=== PATIENT | female | born 1960 | race Caucasian/White ===

== ENCOUNTER 2020-11-02 17:19 | Outpatient (REF) | payer MEDICARE, SELFPAY ==
--- NOTE | ~2020-11-02 | XR_ITS ---
EXAMINATION: XR CHEST CLINICAL INFORMATION: Acute pharyngitis COMPARISON: July 05, 2018 TECHNIQUE: 2 views of the chest were obtained. FINDINGS: No significant abnormality is noted involving the heart, lungs, mediastinum, bony thorax or soft tissues. Linear scar seen lingula. XR/XR chest 2V IMPRESSION: No acute disease.
== END 2020-11-02 17:20 | disposition home or self-care (01) ==
LOC: HO.XRAY 17:19
PROVIDERS: PCP Family Medicine; Visit Provider Nurse Practitioner Family
DX: J02.9 Acute pharyngitis, unspecified (principal)
CPT/HCPCS: 71046

== ENCOUNTER 2021-03-24 10:31 | Outpatient (REF) | payer MEDICARE, SELFPAY ==
--- NOTE | ~2021-03-24 | XR_ITS ---
EXAMINATION: XR SINUSES CLINICAL INFORMATION: Pain. COMPARISON: None TECHNIQUE: 3 views of the sinuses were obtained. FINDINGS: Paranasal sinuses appear clear without air-fluid levels. No fractures are identified. No radiodense foreign bodies. XR/XR sinus min 3V IMPRESSION: Unremarkable examination.
== END 2021-03-24 10:32 | disposition home or self-care (01) ==
LOC: HO.XRAY 10:31
PROVIDERS: PCP Registered Nurse; Visit Provider Registered Nurse
DX: T78.49XS Other allergy, sequela (principal)
CPT/HCPCS: 70220

== ENCOUNTER 2021-07-18 08:00 | Outpatient (RCR) | payer MEDICARE, SELFPAY | END 2021-09-15 13:49 | disposition home or self-care (01) | LOC: HO.PT 08:00 | PROVIDERS: PCP Registered Nurse; Visit Provider Registered Nurse | DX: M54.50 Low back pain, unspecified (principal) | CPT/HCPCS: 97110; 97140; 97162; 97530 ==

== ENCOUNTER 2021-12-15 08:00 | Outpatient (RCR) | payer MEDICARE, SELFPAY | END 2022-01-22 09:44 | disposition home or self-care (01) | LOC: HO.PT 08:00 | PROVIDERS: PCP Registered Nurse; Visit Provider Registered Nurse | DX: M54.2 Cervicalgia (principal) | CPT/HCPCS: 97110; 97140; 97162 ==

== ENCOUNTER 2022-05-19 13:00 | Outpatient (REF) | payer MEDICARE, SELFPAY | END 2022-05-19 13:01 | disposition home or self-care (01) | LOC: HO.HMGCX 13:00 | PROVIDERS: PCP Registered Nurse; Visit Provider Internal Medicine | DX: S90.851A Superficial foreign body, right foot, initial encounter (principal); W22.8XXA Striking against or struck by other objects, initial encounter; Y93.01 Activity, walking, marching and hiking; Y92.9 Unspecified place or not applicable; Y99.8 Other external cause status | CPT/HCPCS: 73630 ==

== ENCOUNTER 2022-07-17 19:32 | Inpatient (IN) | payer MEDICARE, SELFPAY ==
--- NOTE | ~2022-07-17 | XR_ITS ---
EXAMINATION: XR CHEST CLINICAL INFORMATION: Shortness of COMPARISON: 11/02/2020 TECHNIQUE: Frontal view of the chest was obtained. FINDINGS: No significant abnormality is noted involving the heart, lungs, mediastinum, bony thorax or soft tissues. XR/XR chest 1V IMPRESSION: Unremarkable examination.
--- NOTE | ~2022-07-17 | CT_ITS ---
EXAMINATION: CT HEAD WITHOUT CONTRAST CLINICAL INFORMATION: Uncoordinated. Gait changes. COMPARISON: None. TECHNIQUE: Contiguous axial imaging was performed from the skull base to vertex without intravenous administration of contrast. This CT examination was performed using dose optimization techniques as appropriate, variously including the following: *Automated exposure control *Adjustment of mA and/or kV according to patient size (this includes techniques or standardized protocols for targeted exams where dose is matched to indication/reason for exam; i.e. extremities or head) *Use of iterative reconstruction technique DLP: 645 mGy-cm. FINDINGS: There is no intracranial hemorrhage, large infarction, or mass lesion. There is no extra-axial collection. The ventricles are normal in size and configuration without evidence of hydrocephalus. The visualized paranasal sinuses and mastoid air cells are clear. CT/CT head/brain wo IV con IMPRESSION: No acute intracranial abnormality.
--- NOTE | ~2022-07-17 | CT_ITS ---
EXAMINATION: IV contrast enhanced CT angiography of the head and neck; delayed IV contrast-enhanced CT the head CLINICAL INFORMATION: Intermittent gait and balance and slurred speech. COMPARISON: CT head 07/17/2022. TECHNIQUE: IV contrast enhanced CT angiography of the head and neck with multiple 3-D reformatted angiographic thick section MIPS images processed on the technologist workstation under concurrent supervision; delayed IV contrast-enhanced CT the head. Vascular stenoses are made with reference to the NASCET criteria less otherwise specified. This CT examination was performed using dose optimization techniques as appropriate, variously including the following: *Automated exposure control *Adjustment of mA and/or kV according to patient size (this includes techniques or standardized protocols for targeted exams where dose is matched to indication/reason for exam; i.e. extremities or head) *Use of iterative reconstruction technique Intravenous Contrast: Omnipaque 70 mL DLP: 1480 mGy-cm FINDINGS: Delayed IV contrast-enhanced CT of the head: Mild diffuse commensurate prominence of ventricles and sulci is noted. No intrarenal hemorrhage, tumors or acute infarcts are noted. No abnormal enhancement of the brain parenchyma. Normal intraluminal opacification of the major intracranial dural sinuses. No focal parenchymal lesions of the brain. Normal appearance of the orbits and globes. No significant opacification of the visualized paranasal sinuses, mastoid air cells and middle ear cavities. CT angiography neck: Conventional branching anatomy of the great vessels in relation to the transverse aorta. The carotid bulbs are patent. Normal caliber and contour of the internal carotid arteries. A punctate soft tissue calcification is noted in the region of the left carotid bifurcation. This finding appears to abut the left external carotid artery but does not appear to be intrinsic to the artery. The vertebral arteries are codominant. No occlusions or dissections of the cervical carotid or vertebral artery systems noted. CT angiography head: No large vessel intracranial occlusions identified. No stenoses or intracranial aneurysms visualized. Visualized lung apices are clear. The thyroid is normal in appearance. No gross cervical lymphadenopathy identified. Moderate anterior endplate osteophytosis is present at C5-C6. CT/CT angio head neck IMPRESSION: IV contrast-enhanced CT the head: No intracranial abnormalities identified. CT angiography neck: Normal. Patent carotid bulbs. Normal appearance of the cervical carotid and vertebral artery systems. CT angiography head: Normal. No large vessel intracranial occlusions.
--- NOTE | ~2022-07-17 | MR_ITS ---
EXAMINATION: BRAIN MRI WITHOUT CONTRAST CLINICAL INFORMATION: Stroke. COMPARISON: CT angiogram of the head and neck 07/17/2022. TECHNIQUE: Multiplanar MR imaging of the brain was performed without contrast. FINDINGS: There are scattered nonspecific foci of T2 FLAIR signal hyperintensity within the periventricular white matter. No acute territorial infarct. No pathological magnetic susceptibility artifact. Intracranial vascular flow voids are maintained. There is no intracranial mass effect or midline shift. No abnormal extra-axial collection. Lateral and third ventricles are normal. No hydrocephalus. Midline structures including the cervicomedullary junction are normal. No acute bone marrow signal changes. There is no mastoid or middle ear effusion. Mild paranasal sinus mucosal thickening within ethmoid air cells. Globes and orbits are symmetric. MR/MR head/brain wo con IMPRESSION: There are scattered chronic small vessel ischemic changes within the periventricular white matter. Otherwise unremarkable examination. No evidence of acute territorial infarct or hemorrhage. No intracranial mass effect or hydrocephalus.
--- NOTE | 2022-07-17 19:37 | ED.GENADULT ---
HPI - General Adult General Chief complaint: General Medical <Joy Del Toro MD - Last Filed: 07/17/22 19:44> Stated complaint: feeling unbalanced, TIA, uncontrolled mouth moveme <Joy Del Toro MD - Last Filed: 07/17/22 19:44> Time Seen by Provider: 07/17/22 21:36 <Joy Del Toro MD - Last Filed: 07/17/22 19:44> Source: patient <Edinson Brown MD - Last Filed: 07/17/22 22:59> Mode of arrival: ambulatory <Edinson Brown MD - Last Filed: 07/17/22 22:59> Limitations: no limitations <Edinson Brown MD - Last Filed: 07/17/22 22:59> History of Present Illness HPI narrative: 61-year-old female walked into the emergency department for further evaluation of intermittent on balance gait and slurred speech. For the past month patient been getting intermittent unbalanced and stumbling on object on the floor on and off, patient also been getting periods of slurred speech and inability to express herself. Patient has a strong family history of TIA and strokes. Patient admitted to stress going on with her life. Patient with a history of asthma and feeling wheezing patient received treatment at home today still wheezing. <Edinson Brown MD - Last Filed: 07/17/22 22:59> Related Data Home medications: Home Medications Medication Instructions Recorded Confirmed albuterol sulfate 2.5 mg/3 mL 2.5 mg inhalation Q4-6H PRN dyspnea 05/19/22 07/17/22 (0.083 %) solution for nebulization albuterol sulfate 90 mcg/actuation 2 puff inhalation Q4H PRN wheezing 05/19/22 07/17/22 aerosol inhaler (Ventolin HFA) bupropion HCl 300 mg 24 hr tablet, 300 mg PO QAM 05/19/22 07/17/22 extended release duloxetine 60 mg capsule,delayed 1 cap PO DAILY 07/17/22 07/17/22 release fluticasone fur. 200 mcg-umeclid 1 puff inhalation DAILY 07/17/22 07/17/22 62.5 mcg-vilant 25 mcg inhalat.powder (Trelegy Ellipta) naproxen 500 mg tablet 1 tab PO BID PRN Pain 07/17/22 07/17/22 <Joy Del Toro MD - Last Filed: 07/17/22 19:44> Allergies/adverse reactions: Allergies Allergy/AdvReac Type Severity Reaction Status Date / Time adhesive [ADHESIVE] Allergy Unknown RASH Verified 07/17/22 19:43 <Joy Del Toro MD - Last Filed: 07/17/22 19:44> Review of Systems Review of Systems: All other systems are reviewed and are negative Constitutional: Reports as per HPI and Reports no additional constitutional complaints Eyes: Reports as per HPI and Reports no additional eye complaints Reports system reviewed and no additional complaints, except as documented Cardiovascular: Reports as per HPI and Reports no additional cardiovascular complaints Respiratory: Reports as per HPI and Reports no additional respiratory complaints Gastrointestinal: Reports as per HPI and Reports no additional gastrointestinal complaints Genitourinary: Reports no additional female genitourinary complaints Musculoskeletal: Reports no additional musculoskeletal complaints Skin/Breast: Reports system reviewed and no additional complaints, except as docu Psychiatric: Reports no additional psychiatric complaints Endocrine: Reports no additional endocrine complaints Hematologic/Lymphatic: Reports no additional hematologic/lymphatic complaints Allergic/Immunologic: Reports no additional allergic/immunologic complaints Reports system reviewed and no additional complaints, except as documented and Reports Abnormal speech present <Edinson Brown MD - Last Filed: 07/17/22 22:59> [facility] Social History Social History: Social History Advance Directives: No Advance Directives Information Provided: No <Joy Del Toro MD - Last Filed: 07/17/22 19:44> Physical Exam ED Vital Signs: Vital Signs - 24 hr 07/17/22 19:38 07/17/22 21:39 07/17/22 21:58 Temperature 97.2 F 97.8 F Pulse Rate 106 H 90 80 Respiratory Rate 18 18 20 Blood Pressure 127/85 120/79 Pulse Oximetry 95 100 Oxygen Delivery Method Room Air Room Air BMI result Body Mass Index 42.0 <Joy Del Toro MD - Last Filed: 07/17/22 19:44> Vital Signs - 24 hr 07/17/22 19:38 07/17/22 21:39 07/17/22 21:58 Temperature 97.2 F 97.8 F Pulse Rate 106 H 90 80 Respiratory Rate 18 18 20 Blood Pressure 127/85 120/79 Pulse Oximetry 95 100 Oxygen Delivery Method Room Air Room Air BMI result Body Mass Index 42.0 Vital signs have been reviewed as appeared to be correct. Blood pressure normal. Heart rate normal. Respiration rate normal. Temperature normal. Oxygen saturation normal. <Edinson Brown MD - Last Filed: 07/17/22 22:59> Appearance: Alert. Oriented X3. No acute distress. Head: Normal external exam. Normocephalic. Atraumatic. No Trinh signs noted. No raccoon eyes noted Eyes: PERRLA. EOMI. Conjunctiva and sclera normal. Eyelids normal. ENT: TM's Normal. Pharynx normal. Uvula midline. Moist mucous membranes. No trismus noted. No drooling noted. No muffled voice noted. Neck: Normal inspection. Neck supple. FROM. No adenopathy. Thyroid Normal. No meningeal signs. No neck mass noted. CVS: Normal heart rate and rhythm. Heart sound normal. No murmurs noted. Pulses normal throughout. Respiratory: No respiratory distress. Painless inspiration. Breath sounds normal. No wheezes/rales/rhonchi noted. Chest nontender. No accessory muscle usage noted or decreased air movement noted. Abdomen: Soft and nontender. Bowel sounds normal in all 4 quadrants. No distention noted. No organomegaly noted. No visible injury noted. Back: No CVA tenderness. Full range of motion noted. Skin: Skin warm and dry. Normal skin color. Normal skin turgor. No rashes/lesions/lacerations noted. Extremities: No lower extremity edema. Extremities exhibit normal range of motion. Extremities nontender. Neuro: Oriented X 3. Cranial nerve exam: II-XII are grossly intact No motor deficit. No sensory deficit. Reflexes normal. <Edinson Brown MD - Last Filed: 07/17/22 22:59> NIH Stroke Scale Time: 21:52 <Edinson Brown MD - Last Filed: 07/17/22 22:59> Level of Consciousness: Alert <Edinson Brown MD - Last Filed: 07/17/22 22:59> Level of Consciousness Questions: Answers both questions correctly <Edinson Brown MD - Last Filed: 07/17/22 22:59> Level of Consciousness Commands: Performs both tasks correctly <Edinson Brown MD - Last Filed: 07/17/22 22:59> Best Gaze: Normal <Edinson Brown MD - Last Filed: 07/17/22 22:59> Visual: No visual loss <Edinson Brown MD - Last Filed: 07/17/22 22:59> Facial Palsy: Normal <Edinson Brown MD - Last Filed: 07/17/22 22:59> Motor Arm (Right): No drift <Edinson Brown MD - Last Filed: 07/17/22 22:59> Motor Arm (Left): No drift <Edinson Brown MD - Last Filed: 07/17/22 22:59> Motor Leg (Right): No drift <Edinson Brown MD - Last Filed: 07/17/22 22:59> Motor Leg (Left): No drift <Edinson Brown MD - Last Filed: 07/17/22 22:59> Limb Ataxia: Absent <Edinson Brown MD - Last Filed: 07/17/22 22:59> Sensory: Normal <Edinson Brown MD - Last Filed: 07/17/22 22:59> Best Language: No aphasia <Edinson Brown MD - Last Filed: 07/17/22 22:59> Dysarthia: Normal <Edinson Brown MD - Last Filed: 07/17/22 22:59> Extinction and Inattention: No abnormality <Edinson Brown MD - Last Filed: 07/17/22 22:59> Score: 0 <Edinson Brown MD - Last Filed: 07/17/22 22:59> Course Course Course Narrative: 61F pt noticing losing balance over past 3-4 weeks and intermittent coordination.night sweats+,SOB Denies fevers, chills, chest pain. VS Reviewed GEN: NAD EARS: wnl THROAT: wnl LUNGS: CTAB CVS: RRR ABD: NT/ND Neuro: no pronator drift, CN II-XII grossly intact, no facial asymmetry <Joy Del Toro MD - Last Filed: 07/17/22 19:44> Reevaluation(s) Reevaluation #1: 61-year-old female with recurrent symptoms of TIA sent by PCP for further evaluation patient currently have no symptoms with negative CT and NIH of 0 we will admit the patient for further MRI and neurology consultation. Acute asthma exacerbation feels better after bronchodilator. <Edinson Brown MD - Last Filed: 07/17/22 22:59> Medications Administered Discontinued Medications Generic Name Dose Route Start Last Admin Trade Name Freq PRN Reason Stop Dose Admin Albuterol Sulfate 2.5 mg 07/17/22 21:46 07/17/22 21:58 Albuterol Sulfate (0.083%) 2.5 Mg/3 Ml Vial.Neb INHALE 07/17/22 21:47 2.5 mg ONCE ONE Administration Albuterol/Ipratropium 3 ml 07/17/22 21:46 07/17/22 21:58 Albuterol/Iprat 2.5/0.5mg 3 Ml Ampul.Neb INHALE 07/17/22 21:47 3 ml ONCE ONE Administration <Joy Del Toro MD - Last Filed: 07/17/22 19:44> Medications Administered Discontinued Medications Generic Name Dose Route Start Last Admin Trade Name Freq PRN Reason Stop Dose Admin Albuterol Sulfate 2.5 mg 07/17/22 21:46 07/17/22 21:58 Albuterol Sulfate (0.083%) 2.5 Mg/3 Ml Vial.Neb INHALE 07/17/22 21:47 2.5 mg ONCE ONE Administration Albuterol/Ipratropium 3 ml 07/17/22 21:46 07/17/22 21:58 Albuterol/Iprat 2.5/0.5mg 3 Ml Ampul.Neb INHALE 07/17/22 21:47 3 ml ONCE ONE Administration <Edinson Brown MD - Last Filed: 07/17/22 22:59> Medical Decision Making Medical Decision Making Differential Diagnoses: Differential diagnosis Differential Diagnosis: The differential diagnosis associated with the patient?s presentation includes: TIA/CVA/peripheral vertigo. <Edinson Brown MD - Last Filed: 07/17/22 22:59> Consideration of admission/observation: Consideration of Admission/Observation Escalation of care admission/observation considered: Escalation of care including admission/observation considered <Edinson Brown MD - Last Filed: 07/17/22 22:59> Discussion of management with other physician/healthcare provider/other source (e.g., hospitalist, hospice care sales consultant, behavioral health): Discussion w/other physician/healthcare provider Management of the patient was discussed with: Hospitalist My interpretation is <Edinson Brown MD - Last Filed: 07/17/22 22:59> Lab Attestation: I reviewed the patient's lab results. <Edinson Brown MD - Last Filed: 07/17/22 22:59> Independent interpretation of EKG, rhythm strip, radiology study: Independent interp EKG,rhythm strip, radiology study (Chest x-ray: My interpretation no acute pathology.) I performed an independent interpretation of the: EKG My interpretation is normal sinus rhythm at 88 beats per minutes, left axis deviation, normal intervals, nonspecific T-wave flattening in lead III, AVF. No old EKG to compare. <Edinson Brown MD - Last Filed: 07/17/22 22:59> Discussion of test interpretation with radiology: Discussion of test interpretation with radiology Discussed with radiology regarding test interpretation. <Edinson Brown MD - Last Filed: 07/17/22 22:59> Discharge Plan Discharge Clinical Impression: Brain TIA, Acute asthma exacerbation <Joy Del Toro MD - Last Filed: 07/17/22 19:44> Patient Disposition: Admitted As Inpatient <Joy Del Toro MD - Last Filed: 07/17/22 19:44>
[2022-07-17 19:38] VITALS: BP 127/85; PULSE 106; RESP 18; TEMP 36.2; O2SAT 95; BMI 42.0
[2022-07-17 20:20] LABS: COVID-19 Test Negative (Negative); IDNOW Serial# 16C4AD1C; IDNOW Serial# BCCEAD1C; Influenza A Negative (Negative); Influenza B2 Negative (Negative)
[2022-07-17 21:39] VITALS: BP 120/79; PULSE 90; RESP 18; TEMP 36.6; O2SAT 100
--- NOTE | 2022-07-17 21:45 | ECG_ITS ---
Test Reason : tia Blood Pressure : / mmHG Vent. Rate : 088 BPM Atrial Rate : 088 BPM P-R Int : 144 ms QRS Dur : 082 ms QT Int : 364 ms P-R-T Axes : 050 -18 037 degrees QTc Int : 440 ms Normal sinus rhythm Inferior infarct , age undetermined Abnormal ECG When compared with ECG of 05-JUL-2018 04:20, No significant change was found Referred By: Edinson Brown Electronically Signed By:FLAVIO BAR MD
[2022-07-17 21:58] VITALS: PULSE 80; RESP 20; O2SAT 97
[2022-07-17] MEDS: Albuterol Sulfate (0.083%) 2.5 MG/3 ML VIAL.NEB INHALE (21:58)
[2022-07-17] MEDS: Albuterol/Iprat 2.5/0.5MG 3 ML AMPUL.NEB INHALE (21:58)
[2022-07-17 22:16] LABS: MANUAL DIFF FLAG NO
[2022-07-17 22:17] LABS: Basophils Percent Auto 0.4 % (0-2); Eosinophils Absolute Auto 0.1 X10*3/uL (0.0-0.4); Eosinophils Percent Auto 1.1 % (0-4); Hematocrit 43.8 % (37.0-47.0); Hemoglobin 14.7 g/dl (12.0-16.0); Imm Gran Abs Auto 0.03 X10*3/uL (0.00-0.03); Imm Gran Pct Auto 0.3 % (0.0-0.4); Mean Corpuscular HGB Conc 33.6 g/dl (31.0-35.0); Mean Corpuscular Hemoglobin 30.4 pg (27.0-33.0); Mean Corpuscular Volume 90.5 fL (80.0-98.0); Mean Platelet Volume 9.2 fL (9.4-12.3); Monocytes Absolute Auto 0.7 X10*3/uL (0.1-1.2); Monocytes Percent Auto 7.1 % (2-11); Neutrophils Absolute Auto 7.3 x10*3/uL (2.0-8.3); Neutrophils Percent Auto 71.1 % (45-73); Platelet Count 224 X10*3/uL (160-400); Red Blood Count 4.84 X10*6/uL (4.20-5.50); Red Cell Distribution Width 13.2 % (11.0-16.0); White Blood Count 10.2 X10*3/uL (4.8-10.8)
--- NOTE | 2022-07-17 22:19 | PHA.MEDREC ---
Pharmacy Consult ? Medication Reconciliation Pharmacy has completed the medication reconciliation. Spoke to pt, stated she has not yet started progesterone.
[2022-07-17 22:48] LABS: B Type Natriuretic Peptide < 10 pg/mL (<100); Troponin-I High Sensitivity < 3.5 ng/L (<3.5-17.0)
[2022-07-17 22:49] LABS: Alanine Aminotransferase 16 U/L (0-31); Albumin Level 3.9 g/dL (3.5-5.0); Alkaline Phosphatase 97 U/L (39-117); Anion Gap 9 (12-20); Aspartate Amino Transferase 13 U/L (5-31); Bilirubin Direct 0.2 mg/dL (0.0-0.5); Bilirubin Total 0.6 mg/dL (0.0-1.0); Blood Urea Nitrogen 20 mg/dL (9-16); Calcium 8.9 mg/dL (8.4-10.2); Carbon Dioxide 28 mmol/L (22-29); Chloride 109 mmol/L (96-108); Creatinine Clr Calc Pharmacy 95.9; Estimated Glomerular Filt Rate > 60; Glucose Random 109 mg/dL (60-115); Lipase 13 U/L (8-78); Potassium 4.1 mmol/L (3.3-5.1); Sodium 142 mmol/L (135-145); Total Protein 6.3 g/dL (6.5-8.0)
[2022-07-18] VITALS (8 sets, daily range): BP systolic 122–143; BP diastolic 72–85; PULSE 77–91; RESP 12–20; TEMP 36.2–37; O2SAT 93–98
[2022-07-18] MEDS: iohexoL 350 MG/ML 100 ML INFUS..BTL 70 ML IV
[2022-07-18 00:18] LABS: Appearance Urine Clear; Color Urine Yellow; Glucose Urine UA Negative (Negative); Leukocyte Esterase Urine Negative (Negative); Nitrite Urine Negative (Negative); PH 5.5 (5.0-9.0); Specific Gravity - Urine >= 1.030 (1.005-1.025); Urine Blood Negative (Negative); Urine Ketones Negative (Negative); Urine Protein Negative (Neg-Trace)
--- NOTE | 2022-07-18 00:25 | P.HPHOSP_ITS ---
History of Present Illness Date of Service: 07/18/22 Chief Complaint: Slurred speech This is a 61-year-old female with pertinent history of mood disorder, asthma, history of SVT status post ablation who presents to the emergency department for evaluation of slurred speech and gait imbalance. Patient states over the last 1 week she has had multiple episodes of slurred speech which lasted few seconds to a minute. It self resolved. Patient also has occasional intermittent imbalance of gait. No history of similar complaints in the past. Patient went to an storage garage manager today who recommended the patient to go to the ER for further evaluation. Patient denies motor extremity weakness, jerking movement of extr emities, tongue bite, loss of consciousness, blurry vision, tingling numbness in extremities, facial droop. Patient denies palpitations, chest pain, shortness a breath. States she is compliant for her p.o. medications for mood. Patient states she has a family history of TIAs in her father and sister. Patient denies fever, chills, abdominal pain, changes in urinary or bowel habits. No history of essential hypertension or diabetes mellitus. Former smoker and quit in 2003 Review of Systems Constitutional: Constitutional: Reports no additional constitutional complaints ENT: Reports disequilibrium Cardiovascular: Cardiovascular: Reports no additional cardiovascular complaints Respiratory: Respiratory: Reports no additional respiratory complaints Gastrointestinal: Gastrointestinal: Reports no additional gastrointestinal complaints Genitourinary: Genitourinary: Reports no additional female genitourinary complaints Neurologic: Reports Abnormal speech present and Reports disequilibrium [facility] Medical History (Updated 07/18/22 @ 00:36 by Mariela Benavidez MD) H/O supraventricular tachycardia Mood disorder Functional capacity: independent ambulation Pertinent family history: Family history of TIA and diabetes in sister and father Social History Advance Directives: No Advance Directives Information Provided: No Meds Allergies Allergy/AdvReac Type Severity Reaction Status Date / Time adhesive [ADHESIVE] Allergy Unknown RASH Verified 07/17/22 19:43 Active Medications: Current Medications Pharmacy Consult (Consult Rx Perform Med Rec) 1 each MISCELLANE ONCE PRN PRN Reason: Consult order Home Medications Medication Instructions Recorded Confirmed Last Taken Type albuterol sulfate 2.5 mg/3 mL 2.5 mg inhalation Q4-6H PRN dyspnea 05/19/22 07/17/22 Unknown History (0.083 %) solution for nebulization albuterol sulfate 90 mcg/actuation 2 puff inhalation Q4H PRN wheezing 05/19/22 07/17/22 Unknown History aerosol inhaler (Ventolin HFA) bupropion HCl 300 mg 24 hr tablet, 300 mg PO QAM 05/19/22 07/17/22 07/17/22 History extended release duloxetine 60 mg capsule,delayed 1 cap PO DAILY 07/17/22 07/17/22 07/17/22 History release fluticasone fur. 200 mcg-umeclid 1 puff inhalation DAILY 07/17/22 07/17/22 07/17/22 History 62.5 mcg-vilant 25 mcg inhalat.powder (Trelegy Ellipta) naproxen 500 mg tablet 1 tab PO BID PRN Pain 07/17/22 07/17/22 Unknown History Physical Exam Vital Signs and Narrative: Vital Signs: Last Vital Signs Temp 98.0 F 07/18/22 00:12 Pulse 91 07/18/22 00:12 Resp 18 07/18/22 00:12 BP 129/83 07/18/22 00:12 Pulse Ox 95 07/18/22 00:12 O2 Del Method 07/18/22 00:12 BMI result Body Mass Index 42.0 Middle-aged female lying in bed in no distress Neck supple, no JVD Regular rate and rhythm, S1-S2 heard Regular breath sounds bilaterally, no wheezing or crackles appreciated Abdomen soft nontender, no guarding, no rigidity Patient is awake, alert and oriented to self, place, time and person ; strength 5/5 in bilateral upper and lower extremity, no nystagmus, no facial droop, normal speech, tongue and uvula midline, no sensory deficit Psych: Normal mood No pedal edema Neuro: Speech: Abnormal speech present Results Labs CBC and Chem 7: 07/17/22 22:11 07/17/22 22:11 Labs: Laboratory Results - last 24 hr 07/17/22 07/17/22 07/17/22 19:46 19:46 22:11 MCV 90.5 MCH 30.4 MCHC 33.6 RDW 13.2 Plt Count 224 MPV 9.2 L Immature Gran % (Auto) 0.3 Neut % (Auto) 71.1 Lymph % (Auto) 20.0 [place] % (Auto) 7.1 Eos % (Auto) 1.1 Baso % (Auto) 0.4 Lymph # (Auto) 2.0 [place] # (Auto) 0.7 Eos # (Auto) 0.1 Baso # (Auto) 0.0 Abs Immat Gran (auto) 0.03 Absolute Neuts (auto) 7.3 Absolute Nucleated RBC 0.000 Nucleated RBC % (auto) 0.0 Anion Gap Estim Creat Clear Calc Estimated GFR Random Glucose Calcium Total Bilirubin Direct Bilirubin AST ALT Alkaline Phosphatase Troponin I High Sens B-Natriuretic Peptide Total Protein Albumin Lipase Urine Color Urine Appearance Urine pH Ur Specific [place] Urine Protein Urine Glucose (UA) Urine Ketones Urine Blood Urine Nitrite Ur Leukocyte Esterase COVID-19 (KIN) Negative COVID-19 Clin Com See Note Influenza Type A (ZAMZAM) Negative Influenza Type B (ZAMZAM) Negative Influenza A & B Note See Note 07/17/22 07/17/22 07/17/22 22:11 22:11 22:11 MCV MCH MCHC RDW Plt Count MPV Immature Gran % (Auto) Neut % (Auto) Lymph % (Auto) [place] % (Auto) Eos % (Auto) Baso % (Auto) Lymph # (Auto) [place] # (Auto) Eos # (Auto) Baso # (Auto) Abs Immat Gran (auto) Absolute Neuts (auto) Absolute Nucleated RBC Nucleated RBC % (auto) Anion Gap 9 L Estim Creat Clear Calc 95.9 Estimated GFR > 60 Random Glucose 109 Calcium 8.9 Total Bilirubin 0.6 Direct Bilirubin 0.2 AST 13 ALT 16 Alkaline Phosphatase 97 Troponin I High Sens < 3.5 B-Natriuretic Peptide < 10 Total Protein 6.3 L Albumin 3.9 Lipase 13 Urine Color Urine Appearance Urine pH Ur Specific [place] Urine Protein Urine Glucose (UA) Urine Ketones Urine Blood Urine Nitrite Ur Leukocyte Esterase COVID-19 (KIN) COVID-19 Clin Com Influenza Type A (ZAMZAM) Influenza Type B (ZAMZAM) Influenza A & B Note 07/18/22 00:09 MCV MCH MCHC RDW Plt Count MPV Immature Gran % (Auto) Neut % (Auto) Lymph % (Auto) [place] % (Auto) Eos % (Auto) Baso % (Auto) Lymph # (Auto) [place] # (Auto) Eos # (Auto) Baso # (Auto) Abs Immat Gran (auto) Absolute Neuts (auto) Absolute Nucleated RBC Nucleated RBC % (auto) Anion Gap Estim Creat Clear Calc Estimated GFR Random Glucose Calcium Total Bilirubin Direct Bilirubin AST ALT Alkaline Phosphatase Troponin I High Sens B-Natriuretic Peptide Total Protein Albumin Lipase Urine Color Yellow Urine Appearance Clear Urine pH 5.5 Ur Specific [place] >= 1.030 H Urine Protein Negative Urine Glucose (UA) Negative Urine Ketones Negative Urine Blood Negative Urine Nitrite Negative Ur Leukocyte Esterase Negative COVID-19 (KIN) COVID-19 Clin Com Influenza Type A (ZAMZAM) Influenza Type B (ZAMZAM) Influenza A & B Note Imaging Radiologist's Impressions: Impressions Head CT 07/17/22 20:05 IMPRESSION: No acute intracranial abnormality. Chest X-Ray 07/17/22 21:53 IMPRESSION: Unremarkable examination. Head/Neck CTA 07/18/22 00:01 IMPRESSION: IV contrast-enhanced CT the head: No intracranial abnormalities identified. CT angiography neck: Normal. Patent carotid bulbs. Normal appearance of the cervical carotid and vertebral artery systems. CT angiography head: Normal. No large vessel intracranial occlusions. Assessment and Plan (1) Slurred speech: Status: Acute (2) Imbalance: Status: Acute (3) Mood disorder: Status: Acute Plan This is a 61-year-old female with pertinent history of mood disorder, asthma, history of SVT status post ablation who presents to the emergency department for evaluation of slurred speech and gait imbalance. #. TIA -slurred speech and gait imbalance with concern for TIA. Administered loading dose aspirin. will admit patient with cafeteria monitor and obtain MRI of the brain to rule out CVA. Consulted Neurology, appreciate assistance -obtaining transthoracic echocardiogram, A1c and lipid panel to complete workup -obtaining B12 #. Mood disorder: Continue home medications #. Asthma: Continue home inhaler. DuoNeb p.r.n. DVT prophylaxis: Lovenox 40 mg daily NPO until patient passes bedside swallow Full code Admit as inpatient for CVA workup. Neurology consult pending Quality Stroke Does the patient have a stroke diagnosis?: No VTE Prior VTE?: No VTE Risk Level:: Medical - moderate - high VTE Device Contraindication: Treatment Not Indicated VTE Drug Contraindication: N/A - Med Ordered
[2022-07-18] MEDS: Enoxaparin Sodium 40 MG/0.4 ML SYRINGE SUBCUT (01:36)
[2022-07-18] MEDS: Aspirin 81 MG TAB.CHEW 162 MG PO (01:37)
[2022-07-18] MEDS: 0.9 % Sodium Chloride 500 ML IV (01:38)
[2022-07-18] MEDS: Acetaminophen 325 MG TABLET 650 MG PO ×3 (04:16→23:16)
[2022-07-18 06:49] LABS: MANUAL DIFF FLAG NO
[2022-07-18 06:52] LABS: Basophils Percent Auto 0.5 % (0-2); Eosinophils Absolute Auto 0.1 X10*3/uL (0.0-0.4); Eosinophils Percent Auto 1.3 % (0-4); Hematocrit 42.8 % (37.0-47.0); Hemoglobin 13.7 g/dl (12.0-16.0); Imm Gran Abs Auto 0.01 X10*3/uL (0.00-0.03); Imm Gran Pct Auto 0.1 % (0.0-0.4); Lymphocytes Absolute Auto 2.1 X10*3/uL (1.2-4.9); Lymphocytes Percent Auto 24.5 % (20-40); Mean Corpuscular Hemoglobin 29.3 pg (27.0-33.0); Mean Corpuscular Volume 91.5 fL (80.0-98.0); Mean Platelet Volume 9.6 fL (9.4-12.3); Monocytes Absolute Auto 0.6 X10*3/uL (0.1-1.2); Monocytes Percent Auto 6.4 % (2-11); Neutrophils Absolute Auto 5.7 x10*3/uL (2.0-8.3); Neutrophils Percent Auto 67.2 % (45-73); Platelet Count 210 X10*3/uL (160-400); Red Blood Count 4.68 X10*6/uL (4.20-5.50); Red Cell Distribution Width 13.5 % (11.0-16.0); White Blood Count 8.5 X10*3/uL (4.8-10.8)
--- NOTE | 2022-07-18 07:00 | CA_ITS ---
Transthoracic Echocardiogram Patient (Last, First, Middle): Radha Brown, Gender: Female Date of : 1960 Age: 61 Procedure Date: 07/18/2022 Procedure Type: Transthoracic Echocardiogram Location: [facility] [place] Height: 162.56 cm Weight: 111.13 kg BSA: 2.13 m2 Heart Rate: bpm BP: 122 / 73 mmHg Youth Pastor: Referring MD: Mariela Benavidez MD Chute Boss: Gerson Alvarado MD Symptoms: Stroke Study Quality: Fair ECG Rhythm: Sinus Conclusions: - 1. Normal LV systolic function with grade 1 diastolic dysfunction 2. Normal cardiac valvular Dopplers 3. Normal RV systolic pressure 4. No gross pericardial effusion Findings Left Ventricle Normal left ventricular size, thickness, and systolic function. The visually estimated ejection fraction is between 60-65%. Spectral Doppler is indicative of an impaired relaxation filling pattern. E/E prime ratio is <8, consistent with normal filling pressures. Evidence suggests grade I (mild) diastolic dysfunction. Right Ventricle Normal right ventricular cavity size and systolic function. Atria Both atria are normal in size. Interatrial shunt cannot be excluded. Aortic Valve Normal aortic valve structure and function. There is no aortic valve stenosis. There is no aortic valve regurgitation. Mitral Valve Normal mitral valve structure and function. There is trace mitral valve regurgitation. There is no mitral valve stenosis. Pulmonic Valve The pulmonic valve was not well visualized. Tricuspid Valve Likely normal tricuspid valve structure and function. There is trace tricuspid valve regurgitation. The right ventricular systolic pressure is normal. The right ventricular systolic pressure is 18 mmHg. Normal right atrial pressure. Great Vessels All visible segments of the aorta are normal in size. Venous The inferior vena cava is normal in size and collapses greater than 50% with inspiration. Pericardium/Pleural There is no evidence of pericardial effusion. Prior Study Comparison No prior study available for comparison. Recommendations, Care & Conclusions Consider a ORLIN if clinically appropriate. Recommend contrast study to evaluate intracardiac shunting. Measurements 2D Linear Measurements IVSd: 0.97 0.6-0.9/0.6-1.0 cm LVIDd: 4.56 3.9-5.3/4.2-5.9 cm LVIDd Index: 2.14 2.4-3.2/2.2-3.1 cm/m2 LVIDs: 2.94 2.0-3.6 cm LVPWd: 1.05 0.7-1.1 cm Ao Root: 3.20 2.1-3.5 cm LA Diam: 4.20 2.7-3.8/3.0-4.0 cm LAIDs Index: 1.97 1.5-2.3 cm/m2 LV Mass: 197.00 67-162/88-224 g LV Mass Index: 92.49 43-95/49-115 g/m2 LVOT Diam: 2.20 3.0+(-)1.3 cm Mitral Valve MV Pk E: 0.70 MV PK A: 0.80 MV Decel Time: 171.00 E/A: 0.90 E'Lateral: 9.36 E'Medial: 6.85 E/E' Med: 10.20 E/E' Lat: 7.50 PHT: 50.00 MVA PHT: 4.40 Decel [place]: 4.09 Aortic Valve AoV Pk Mihir: 1.43 AoV Mn Mihir: 0.93 AoV VTI: 0.31 AoV Pk Grad: 8.00 Aov Mn Grad: 4.00 BIANCA Cont.VTI: 2.96 LVOT LVOT Pk Mihir: 0.94 LVOT Mn Mihir: 0.61 LVOT VTI: 0.24 LVOT Pk Grad: 4.00 LVOT Mn Grad: 2.00 LVOT Diam: 2.20 LVOT Area: 3.80 Diastolic Function MV Pk E: 0.70 MV Pk A: 0.80 E/A: 0.90 E'Medial: 6.85 E/E' Med: 10.20 E' Laterial: 9.36 E/E' Lat: 7.50 Tricuspid Valve TR Pk Mihir: 1.95 TR Pk Grad: 15.00 RA Press: 3.00 RVSP: 18.00 Great Vessels Aorta Ao Root-2D: 3.20 2.0-3.7 cm Ao Asc: 3.90 2.1-3.4 cm Pulmonary Valve PV Pk Mihir: 0.92 Peak PV Grad: 3.00 Updated in Other Vendor System with Status of Final Gerson Alvarado MD electronically signed on 07/19/2022 2:52:40 PM with status of Final
[2022-07-18 07:01] LABS: Estimated Average Glucose 114 mg/dL; Hemoglobin A1c % 5.6 %
[2022-07-18 07:08] LABS: Cholesterol 164 mg/dL; HDL Cholesterol 39 mg/dL; LDL Cholesterol Calculated 110 mg/dl; Triglycerides 75 mg/dL
[2022-07-18 07:11] LABS: Anion Gap 9 (12-20); Blood Urea Nitrogen 15 mg/dL (9-16); Calcium 8.3 mg/dL (8.4-10.2); Carbon Dioxide 26 mmol/L (22-29); Chloride 110 mmol/L (96-108); Creatinine Clr Calc Pharmacy 102.6; Estimated Glomerular Filt Rate > 60; Glucose Random 102 mg/dL (60-115); Potassium 4.3 mmol/L (3.3-5.1); Sodium 141 mmol/L (135-145)
--- NOTE | 2022-07-18 07:30 | PC.NURSE ---
Patient transported to MRI . patient aware of plan of care .
[2022-07-18 07:36] LABS: Vitamin B12 417 pg/mL (200-900)
[2022-07-18] MEDS: DULoxetine HCl 60 MG CAPSULE.DR PO (09:08)
[2022-07-18] MEDS: buPROPion HCl XL 300 MG TAB.ER.24H PO (09:09)
--- NOTE | 2022-07-18 09:23 | PC.NURSE ---
patient a/ox4 . tawanarla .heart rate regular at 78 beats per minute . breathing even and unlabored . lungs clear throughout . skin pink warm and dry. abdomen soft not tender . Ciro check done and passed . patient passed swallow evaluation . patient aware of plan of care for admission . reports a headache that is a pain level of 6 out of 10 that patient believes is related to how they have been laying in bed also has history of migraines . patient is aware of plan of care .
--- NOTE | 2022-07-18 09:53 | MHC.CM.PN ---
Met with patient in regards to discharge planning. Patient lives with her , ambulates independently and had no services prior to coming to the hospital. No services anticipated to be needed because patient is not homebound. PCP verified as Stacie Huertas. Patient has received 2 Pfizer vaccines and 2 Moderna boosters. Patient has a HCP at home and will attempt to obtain a copy. IMM explained and signed. Patient's is currently at a conference in [place] and will not be able to transport patient home. When medically stable patient will either call a friend or order an Uber. Patient has a history of migraines and is requesting Nurtec 75mg by mouth now for a migraine. Dr Ovalles aware. Continue to monitor for d/c needs.
--- NOTE | 2022-07-18 10:23 | PC.NURSE ---
neurology at bedside . patient medicated with 650mg of Tylenol for head/neck pain r/t position of sleeping in stretcher she believes . patient aware of plan of care .
--- NOTE | 2022-07-18 11:18 | PM.NEUROCN ---
History of Present Illness Data of Consult Service Date: 07/18/22 Primary Care Provider: Unknown Physician HPI Reason for consult: Slurred speech and unsteadiness 61 years old woman with underlying diagnosis of SVT and mood disorder who came to hospital with suspicion of TIA . She said that she was having difficulty speaking and unsteadiness and talk to her doctor who stated that he should go to emergency room. He was not having any headache and did not have any trauma recently. Symptoms were on and off and not noted when she was in emergency room. She had head CT, CTA of brain and neck and MRI of brain and this consultation was requested. Review of Systems Review of Systems: No recent cold or flu-like illness PMFSH Past Medical History Medical History (Updated 07/18/22 @ 00:36 by Mariela Benavidez MD) H/O supraventricular tachycardia Mood disorder Functional capacity: independent ambulation Social History Social History Alcohol intake: former Smoked in Last 30 Days: No Advance Directives: Yes Advance Directives on File: Yes Advance Directives Date on File: 07/18/22 service: No Current occupational status: disabled Meds Allergies Allergy/AdvReac Type Severity Reaction Status Date / Time adhesive [ADHESIVE] Allergy Unknown RASH Verified 07/17/22 19:43 Active Medications: Current Medications Acetaminophen (Acetaminophen 325 Mg Tablet) 650 mg PO Q6H PRN PRN Reason: Pain, Mild (Pain Scale 1-3) Last Admin: 07/18/22 10:23 Dose: 650 mg Albuterol Sulfate (Albuterol Sulfate 90 Mcg 8 Gm Inhaler) 2 puff INHALE Q4H PRN PRN Reason: wheezing Albuterol/Ipratropium (Albuterol/Iprat 2.5/0.5mg 3 Ml Ampul.Neb) 3 ml INHALE RQ4H PRN PRN Reason: wheezing Aspirin (Aspirin 81 Mg Tab.Chew) 81 mg PO DAILY [facility] Atorvastatin Calcium (Atorvastatin Calcium 40 Mg Tablet) 40 mg PO BEDTIME SHERIF Bupropion HCl (Bupropion Hcl Xl 300 Mg Tab.Er.24h) 300 mg PO DAILY [facility] Last Admin: 07/18/22 09:22 Dose: Not Given Duloxetine HCl (Duloxetine Hcl 60 Mg Capsule.Dr) 60 mg PO DAILY [facility] Last Admin: 07/18/22 09:08 Dose: 60 mg Enoxaparin Sodium (Enoxaparin Sodium 40 Mg/0.4 Ml Syringe) 40 mg SUBCUT Q24H [facility] Last Admin: 07/18/22 01:36 Dose: 40 mg Melatonin (Melatonin 3 Mg Tablet) 6 mg PO BEDTIME PRN PRN Reason: Insomnia Non-Formulary Medication (Qnuxrmnbnve-Rrpbkmwks-Ffngysch [Trelegy Ellipta]) 1 puff INHALE DAILY [facility] Ondansetron HCl (Ondansetron Hcl 4 Mg/2 Ml Vial) 4 mg IVPUSH Q8H PRN PRN Reason: Nausea and Vomiting Pharmacy Consult (Consult Rx Perform Med Rec) 1 each MISCELLANE ONCE PRN PRN Reason: Consult order Sumatriptan Succinate (Sumatriptan Succinate 50 Mg Tablet) 50 mg PO DAILY PRN PRN Reason: migraine headache Home Medications Medication Instructions Recorded Confirmed Last Taken Type albuterol sulfate 2.5 mg/3 mL 2.5 mg inhalation Q4-6H PRN dyspnea 05/19/22 07/17/22 Unknown History (0.083 %) solution for nebulization albuterol sulfate 90 mcg/actuation 2 puff inhalation Q4H PRN wheezing 05/19/22 07/17/22 Unknown History aerosol inhaler (Ventolin HFA) bupropion HCl 300 mg 24 hr tablet, 300 mg PO QAM 05/19/22 07/17/22 07/17/22 History extended release duloxetine 60 mg capsule,delayed 1 cap PO DAILY 07/17/22 07/17/22 07/17/22 History release fluticasone fur. 200 mcg-umeclid 1 puff inhalation DAILY 07/17/22 07/17/22 07/17/22 History 62.5 mcg-vilant 25 mcg inhalat.powder (Trelegy Ellipta) naproxen 500 mg tablet 1 tab PO BID PRN Pain 07/17/22 07/17/22 Unknown History Physical Exam Vital Signs: Vital Signs: Last Vital Signs Temp 98.1 F 07/18/22 07:00 Pulse 78 07/18/22 07:00 Resp 12 07/18/22 07:00 BP 122/73 07/18/22 07:00 Pulse Ox 93 07/18/22 07:00 O2 Del Method 07/18/22 07:00 BMI result Body Mass Index 42.0 Neuro: Other: she is alert and awake obese woman in no acute distress. Spontaneity and fluency of speech are intact. Comprehension is intact. Affect is okay. Extraocular muscles are intact. Visual pereyra are full. Pupils are round. Face is symmetrical. There is no pronator drift. Zkaxpk-qw-kwpa testing Revealed mild bilateral tremor. Deep tendon reflexes are absent with flat plantars. She is able to get up and walk without difficulty. Speech is normal. Results Labs CBC & Chem 7: 07/18/22 06:00 07/18/22 06:00 Labs: Short CBC 07/17/22 07/18/22 Range/Units 22:11 06:00 WBC 10.2 8.5 (4.8-10.8) X10*3/uL Hgb 14.7 13.7 (12.0-16.0) g/dl Hct 43.8 42.8 (37.0-47.0) % Plt Count 224 210 (160-400) X10*3/uL BMP 07/17/22 07/18/22 22:11 06:00 Sodium 142 141 Potassium 4.1 4.3 Chloride 109 H 110 H Carbon Dioxide 28 26 BUN 20 H 15 Creatinine 0.77 0.72 Calcium 8.9 8.3 L D Liver Function 07/17/22 Range/Units 22:11 Total Bilirubin 0.6 (0.0-1.0) mg/dL Direct Bilirubin 0.2 (0.0-0.5) mg/dL AST 13 (5-31) U/L ALT 16 (0-31) U/L Alkaline Phosphatase 97 (39-117) U/L Albumin 3.9 (3.5-5.0) g/dL Urine 07/18/22 Range/Units 00:09 Urine Color Yellow Urine Appearance Clear Urine pH 5.5 (5.0-9.0) Ur Specific [place] >= 1.030 H (1.005-1.025) Urine Protein Negative (Neg-Trace) mg/dL Urine Glucose (UA) Negative (Negative) mg/dL Her head CT of brain without contrast, CTA of brain and neck and MRI of brain were reviewed. Minimal microvascular ischemic changes were noted that would not explain her symptoms. Also noted was [id number] bilateral cerebellar and cerebral atrophy somewhat more for her age. Assessment and Plan (1) Slurred speech: Status: Acute 61 years old woman who has seems to suffer from an underlying neuropsychiatric condition labeled as mood disorder. Her imaging revealed mild cerebellar and cerebral atrophy out of proportion for age and minimal microvascular ischemic type of changes, which would not explain her symptoms. If she did not have any history of significant alcohol abuse, explanation for her situation would be either genetic or acquired degenerative condition. patients like her could present with anxiety and sometime psychosomatic type of illnesses. I recommend counseling, therapy and appropriate management of anxiety. She should be advised to not drink alcohol. Procedures Date of Service Date of Service: 07/18/22
--- NOTE | 2022-07-18 11:36 | PC.NURSE ---
Report given to Jose D . patient ready for transport . patient aware of plan of care .
--- NOTE | 2022-07-18 12:40 | MHC.SLORD ---
Addendum entered and electronically signed by Coral De La Garza MA, CCC-BEHAVIORAL HEALTH SPECIALIST 07/18/22 17:20: D.S. Original Note: Speech Language Pathology Order Status: Per RN, pt passed RN swallow screen. Per MD, speech clinical swallow evaluation at bedside is not needed. MD to cancel order.
[2022-07-18] MEDS: SUMAtriptan succinate 50 MG TABLET PO (12:51)
--- NOTE | 2022-07-18 13:07 | PM.EVENT ---
Event Note Date of Service: 07/18/22 Event Note: Day hospitalist update S: anxious no further episodes of word finding difficulty O: Temp Pulse Resp BP Pulse Ox O2 Del Method 98.1 F 78 12 122/73 93 07/18/22 07:00 07/18/22 07:00 07/18/22 07:00 07/18/22 07:00 07/18/22 07:00 07/18/22 07:00 Gen: in no acute distress HEENT: sclera anicteric, moist mucus membranes Neck: supple Lungs: clear to auscultation bilaterally Heart: regular rate and rhythm, no murmurs Abd: soft, non-tender, non-distended Ext: no edema Skin: warm/well-perfused Neuro: alert and oriented x3, no pronator drift, no facial droop, normal FTN/GERALD Psych: appropriate affect A/P: hospital day#1 61yo F with mood disorder, asthma, SVT s/p ablation presenting with episodic slurred speech/gait imbalance # possible TIA - MRI, Neuro consult, telemetry, echo # mood disorder - continue home meds # asthma - continue home inhaler # VTE ppx: LMWH # dispo: anticipate home in next 1d In my clinical judgment, the patient requires continued inpatient hospitalization for the following reasons: TIA workup
[2022-07-18] MEDS: Throat Lozenge, Medicated LOZENGE 1 LOZENGE MUCOUS MEM (18:35)
[2022-07-18] MEDS: Albuterol/Iprat 2.5/0.5MG 3 ML AMPUL.NEB INHALE (20:27)
[2022-07-18] MEDS: Atorvastatin Calcium 40 MG TABLET PO (21:02)
[2022-07-19] MEDS: Enoxaparin Sodium 40 MG/0.4 ML SYRINGE SUBCUT (01:02)
[2022-07-19 04:00] VITALS: BP 120/75; PULSE 80; RESP 18; TEMP 37.1; O2SAT 94
[2022-07-19 06:47] LABS: Cholesterol 194 mg/dL; HDL Cholesterol 42 mg/dL; LDL Cholesterol Calculated 132 mg/dl; Triglycerides 103 mg/dL
[2022-07-19 08:00] VITALS: BP 138/78; PULSE 74; RESP 12; TEMP 36.4; O2SAT 92
[2022-07-19] MEDS: DULoxetine HCl 60 MG CAPSULE.DR PO (08:17)
[2022-07-19] MEDS: buPROPion HCl XL 300 MG TAB.ER.24H PO (08:17)
[2022-07-19] MEDS: Aspirin 81 MG TAB.CHEW PO (08:17)
--- NOTE | 2022-07-19 11:34 | PM.DS ---
DS: Providers Provider Date of Service: 07/19/22 Date of admission: 07/18/22 00:26 Date of discharge: 07/19/22 Primary care physician: Stacie Huertas MD Consults: 07/18/22 00:25 Consult to Neurology Routine Consulting Provider: [facility] Reason for consultation: ?stroke DS: Diagnosis Discharge Diagnosis (1) Slurred speech: Status: Acute (2) Imbalance: Status: Acute (3) Mood disorder: Status: Acute (4) Cerebral microvascular disease: Status: Acute DS: Summary Hospital Course Hospital Course: from admission H+P by hospitalist Dolores Benavidez, 07/18/22: This is a 61-year-old female with pertinent history of mood disorder, asthma, history of SVT status post ablation who presents to the emergency department for evaluation of slurred speech and gait imbalance.? Patient states over the last 1 week she has had multiple episodes of slurred speech which lasted few seconds to a minute.? It self resolved.? Patient also has occasional intermittent imbalance of gait.? No history of similar complaints in the past.? Patient went to an bull float finisher today who recommended the patient to go to the ER for further evaluation.? Patient denies motor extremity weakness, jerking movement of extremities, tongue bite, loss of consciousness, blurry vision, tingling numbness in extremities, facial droop.? Patient denies palpitations, chest pain, shortness a breath.? States she is compliant for her p.o. medications for mood.? Patient states she has a family history of TIAs in her father and sister.? Patient denies fever, chills, abdominal pain, changes in urinary or bowel habits.? No history of essential hypertension or diabetes mellitus.? Former smoker and quit in 2003 61yo F with mood disorder, asthma, SVT s/p ablation presenting with episodic slurred speech/gait imbalance and admitted for concern of possible TIA. Neurology was consulted and per insurance healthcare consultant Dr Ruth Menchaca: 61 years old woman who has seems to suffer from an underlying neuropsychiatric condition labeled as mood disorder.? Her imaging revealed mild cerebellar and cerebral atrophy out of proportion for age and minimal microvascular ischemic type of changes, which would not explain her symptoms.? If she did not have any history of significant alcohol abuse, explanation for her situation would be either genetic or acquired degenerative condition. ? patients like her could present with anxiety and sometime psychosomatic type of illnesses.? I recommend counseling, therapy and appropriate management of anxiety.? She should be advised to not drink alcohol. . No arrhythmias on telemetry and no stenosis on CTA. Echocardiogram pending at the time of discharge [software is down and the study cannot be read at this time] but unlikely to show significant disease. She was discharged home with atorvastatin and aspirin for primary prevention given the microvascular disease. Time Spent with Patient Time attestation: Total time spent providing and/or coordinating discharge services: 35 Discharge coordination time: Greater than 30 minutes Quality: Safe Use of Opioids Does Pt have an Active Cancer Diagnosis on the Problem List?: No Quality: Stroke Does the patient have a stroke diagnosis?: No Physical Exam Vital Signs: Vital Signs: Last Vital Signs Temp 97.6 F 07/19/22 08:00 Pulse 74 07/19/22 08:00 Resp 12 07/19/22 08:00 BP 138/78 07/19/22 08:00 Pulse Ox 92 07/19/22 08:00 O2 Del Method 07/19/22 08:00 BMI result Body Mass Index 42.0 Gen: in no acute distress HEENT: sclera anicteric, moist mucus membranes Neck: supple Lungs: clear to auscultation bilaterally Heart: regular rate and rhythm, no murmurs Abd: soft, non-tender, non-distended Ext: no edema Skin: warm/well-perfused Neuro: alert and oriented x3, no pronator drift, no facial droop, normal FTN/GERALD Psych: appropriate affect DS: Data Data Completed and Pending Completed studies during hospitalization [Text1]: Laboratory Results WBC 8.5 X10*3/uL (4.8-10.8) 07/18/22 06:00 RBC 4.68 X10*6/uL (4.20-5.50) 07/18/22 06:00 Hgb 13.7 g/dl (12.0-16.0) 07/18/22 06:00 Hct 42.8 % (37.0-47.0) 07/18/22 06:00 MCV 91.5 fL (80.0-98.0) 07/18/22 06:00 MCH 29.3 pg (27.0-33.0) 07/18/22 06:00 MCHC 32.0 g/dl (31.0-35.0) 07/18/22 06:00 RDW 13.5 % (11.0-16.0) 07/18/22 06:00 Plt Count 210 X10*3/uL (160-400) 07/18/22 06:00 MPV 9.6 fL (9.4-12.3) 07/18/22 06:00 Immature Gran % (Auto) 0.1 % (0.0-0.4) 07/18/22 06:00 Neut % (Auto) 67.2 % (45-73) 07/18/22 06:00 Lymph % (Auto) 24.5 % (20-40) 07/18/22 06:00 Gage % (Auto) 6.4 % (2-11) 07/18/22 06:00 Eos % (Auto) 1.3 % (0-4) 07/18/22 06:00 Baso % (Auto) 0.5 % (0-2) 07/18/22 06:00 Lymph # (Auto) 2.1 X10*3/uL (1.2-4.9) 07/18/22 06:00 Gage # (Auto) 0.6 X10*3/uL (0.1-1.2) 07/18/22 06:00 Eos # (Auto) 0.1 X10*3/uL (0.0-0.4) 07/18/22 06:00 Baso # (Auto) 0.0 X10*3/uL (0.0-0.2) 07/18/22 06:00 Abs Immat Gran (auto) 0.01 X10*3/uL (0.00-0.03) 07/18/22 06:00 Absolute Neuts (auto) 5.7 x10*3/uL (2.0-8.3) 07/18/22 06:00 Absolute Nucleated RBC 0.000 X10*3/uL (0.0-0.012) 07/18/22 06:00 Nucleated RBC % (auto) 0.0 /100WBC (0.0-0.2) 07/18/22 06:00 Sodium 141 mmol/L (135-145) 07/18/22 06:00 Potassium 4.3 mmol/L (3.3-5.1) 07/18/22 06:00 Chloride 110 mmol/L (96-108) H 07/18/22 06:00 Carbon Dioxide 26 mmol/L (22-29) 07/18/22 06:00 Anion Gap 9 (12-20) L 07/18/22 06:00 BUN 15 mg/dL (9-16) 07/18/22 06:00 Creatinine 0.72 mg/dL (0.5-1.4) 07/18/22 06:00 Estim Creat Clear Calc 102.6 07/18/22 06:00 Estimated GFR > 60 07/18/22 06:00 Random Glucose 102 mg/dL (60-115) 07/18/22 06:00 Estimat Average Glucose 114 mg/dL 07/18/22 06:00 Hemoglobin A1c % 5.6 % 07/18/22 06:00 Calcium 8.3 mg/dL (8.4-10.2) L D 07/18/22 06:00 Total Bilirubin 0.6 mg/dL (0.0-1.0) 07/17/22 22:11 Direct Bilirubin 0.2 mg/dL (0.0-0.5) 07/17/22 22:11 AST 13 U/L (5-31) 07/17/22 22:11 ALT 16 U/L (0-31) 07/17/22 22:11 Alkaline Phosphatase 97 U/L (39-117) 07/17/22 22:11 Troponin I High Sens < 3.5 ng/L (<3.5-17.0) 07/17/22 22:11 B-Natriuretic Peptide < 10 pg/mL (<100) 07/17/22 22:11 Total Protein 6.3 g/dL (6.5-8.0) L 07/17/22 22:11 Albumin 3.9 g/dL (3.5-5.0) 07/17/22 22:11 Triglycerides 103 mg/dL 07/19/22 06:13 Cholesterol 194 mg/dL 07/19/22 06:13 LDL Cholesterol, Calc 132 mg/dl 07/19/22 06:13 HDL Cholesterol 42 mg/dL 07/19/22 06:13 Lipase 13 U/L (8-78) 07/17/22 22:11 Vitamin B12 417 pg/mL (200-900) 07/18/22 06:00 Urine Color Yellow 07/18/22 00:09 Urine Appearance Clear 07/18/22 00:09 Urine pH 5.5 (5.0-9.0) 07/18/22 00:09 Ur Specific [place] >= 1.030 (1.005-1.025) H 07/18/22 00:09 Urine Protein Negative mg/dL (Neg-Trace) 07/18/22 00:09 Urine Glucose (UA) Negative mg/dL (Negative) 07/18/22 00:09 Urine Ketones Negative mg/dL (Negative) 07/18/22 00:09 Urine Blood Negative (Negative) 07/18/22 00:09 Urine Nitrite Negative (Negative) 07/18/22 00:09 Ur Leukocyte Esterase Negative (Negative) 07/18/22 00:09 COVID-19 (KIN) Negative (Negative) 07/17/22 19:46 COVID-19 Clin Com See Note 07/17/22 19:46 Influenza Type A (ZAMZAM) Negative (Negative) 07/17/22 19:46 Influenza Type B (ZAMZAM) Negative (Negative) 07/17/22 19:46 Influenza A & B Note See Note 07/17/22 19:[address] 07/17/22 20:05 IMPRESSION: No acute intracranial abnormality. Chest X-Ray 07/17/22 21:53 IMPRESSION: Unremarkable examination. Head/Neck CTA 07/18/22 00:01 IMPRESSION: IV contrast-enhanced CT the head: No intracranial abnormalities identified. CT angiography neck: Normal. Patent carotid bulbs. Normal appearance of the cervical carotid and vertebral artery systems. CT angiography head: Normal. No large vessel intracranial occlusions. Brain MRI 07/18/22 08:10 IMPRESSION: There are scattered chronic small vessel ischemic changes within the periventricular white matter. Otherwise unremarkable examination. No evidence of acute territorial infarct or hemorrhage. No intracranial mass effect or hydrocephalus. Pending studies at discharge: transthoracic echocardiogram, 07/18/22 Discharge Plan Discharge Anticipated Discharge Date/Time: 07/19/22 11:26 Patient Disposition: Home, Self-Care Discharge Diagnosis: imbalance + slurred speech, resolved microvascular disease, chronic Referrals: Stacie Huertas, [facility], WOMEN'S SWIM COACH, LOSS PREVENTION REPRESENTATIVE-C [Nurse Practitioner] - 1 Week Discharge Medications: New atorvastatin 40 mg Tablet 40 mg PO BEDTIME Qty: 90 0RF aspirin 81 mg Tablet,Chewable 81 mg PO DAILY Qty: 90 0RF Continued naproxen 500 mg tablet 1 tab PO BID PRN (Reason: Pain) duloxetine 60 mg capsule,delayed release(DR/EC) 1 cap PO DAILY Trelegy Ellipta 200-62.5-25 mcg blister with device 1 puff inhalation DAILY bupropion HCl 300 mg tablet extended release 24 hr 300 mg PO QAM albuterol sulfate 2.5 mg /3 mL (0.083 %) solution for nebulization 2.5 mg inhalation Q4-6H PRN (Reason: dyspnea) albuterol sulfate [Ventolin HFA] 90 mcg/actuation HFA aerosol inhaler 2 puff inhalation Q4H PRN (Reason: wheezing) Discharge Orders: Discharge Order (Routine); Ordered 07/19/22 Ordered By: Valeriano Ovalles Diet: Mediterranean Activity on Discharge: As tolerated Stand Alone Forms: Patient Portal Discharge page Care Plan Goals: prevention of atherosclerotic complications Health Concerns: imbalance + slurred speech, resolved microvascular disease, chronic Plan of Treatment: stress reduction aspirin and atorvastatin for primary prevention of stroke + MD Assessment: See Discharge Summary.
--- NOTE | 2022-07-19 11:36 | MHC.CM.PN ---
Patient has been medically cleared for dc to home today, self care.
[2022-07-19 12:00] VITALS: BP 131/79; PULSE 85; RESP 14; TEMP 36.7; O2SAT 95
== END 2022-07-19 13:43 | disposition home or self-care (01) | DRG 72 ==
LOC: HO.ED 21:56 → HO.EDOVER 07-18 00:33 → HO.IMC 07-18 08:49
PROVIDERS: Student in an Organized Health Care Education/Training Program; Admitting Provider Student in an Organized Health Care Education/Training Program; Emergency Provider Emergency Medicine; PCP Registered Nurse; Visit Provider Family Medicine
DX: I67.9 Cerebrovascular disease, unspecified (principal); R47.81 Slurred speech; F39 Unspecified mood [affective] disorder; R26.81 Unsteadiness on feet; Z20.822 Contact with and (suspected) exposure to COVID-19; Z79.899 Other long term (current) drug therapy
CPT/HCPCS: 36415; 70450; 70496; 70498; 70551; 71045; 80048; 80061; 80076; 81003; 82607; 83036; 83690; 83880; 84484; 85025; 87502; 87635; 93005; 93306; 94640; 99285; J1650; Q9967

== ENCOUNTER 2022-11-23 02:44 | Emergency (ER) | payer MEDICARE, SELFPAY ==
[2022-11-23 02:54] VITALS: BP 138/88; PULSE 82; RESP 18; O2SAT 96; BMI 43.7
--- NOTE | 2022-11-23 03:16 | ED_ITS ---
HPI - Fall General Chief Complaint: Fall Stated Complaint: EYEBROW LAC FROM FALL Time Seen by Provider: 11/23/22 03:16 Source: patient Mode of arrival: ambulatory Limitations: no limitations History of Present Illness HPI Narrative: Patient with history of sleep apnea was in dream , rolled over hitting her right eyebrow to the nightstand. No loss of conscious no other injuries patient came with about 2 cm laceration noted to the right eyebrow near crease of the eye slight oozing of the blood no vision loss other injuries Related Data Home Medications Medication Instructions Recorded Confirmed albuterol sulfate 2.5 mg/3 mL 2.5 mg inhalation Q4-6H PRN dyspnea 05/19/22 07/17/22 (0.083 %) solution for nebulization albuterol sulfate 90 mcg/actuation 2 puff inhalation Q4H PRN wheezing 05/19/22 07/17/22 aerosol inhaler (Ventolin HFA) bupropion HCl 300 mg 24 hr tablet, 300 mg PO QAM 05/19/22 07/17/22 extended release duloxetine 60 mg capsule,delayed 1 cap PO DAILY 07/17/22 07/17/22 release fluticasone fur. 200 mcg-umeclid 1 puff inhalation DAILY 07/17/22 07/17/22 62.5 mcg-vilant 25 mcg inhalat.powder (Trelegy Ellipta) naproxen 500 mg tablet 1 tab PO BID PRN Pain 07/17/22 07/17/22 Previous Rx's Medication Instructions Recorded aspirin 81 mg chewable tablet 81 mg PO DAILY #90 tabs 07/19/22 atorvastatin 40 mg tablet 40 mg PO BEDTIME #90 tabs 07/19/22 Allergies Allergy/AdvReac Type Severity Reaction Status Date / Time adhesive [ADHESIVE] Allergy Unknown RASH Verified 07/17/22 19:43 Review of Systems Review of Systems: Yes all other systems are reviewed and are negative PMFSH Past Medical History Medical History Acute asthma exacerbation Cerebral microvascular disease H/O supraventricular tachycardia Imbalance Mood disorder Slurred speech Social History Social History Household Members: Significant Other Housing: House Do you presently have visiting nurse or other home services: No Alcohol intake: former Patient Tobacco Use Status: Never used Tobacco Advance Directives: Yes Advance Directives on File: Yes Advance Directives Date on File: 07/18/22 service: No Current occupational status: disabled Physical Exam Vital Signs: Vital Signs: Last Vital Signs Pulse 82 11/23/22 02:54 Resp 18 11/23/22 02:54 BP 138/88 11/23/22 02:54 Pulse Ox 96 11/23/22 02:54 O2 Del Method Room Air 11/23/22 02:54 BMI result Body Mass Index 43.7 Appearance: Alert. Oriented X3. No acute distress. Eyes: PERRLA, No Nystagmus ENT: Pharynx normal. Oral Mucosa moist superficial laceration right eyebrow Neck: Normal inspection. Neck supple. CVS: Normal heart rate and rhythm. Pulses normal. Respiratory: No respiratory distress. Equal air entry bilateral, no wh eezing/rales/rhonchi Abdomen: Soft and nontender. Bowel sounds are present, Skin: Skin warm and dry. Normal skin color. Normal skin turgor. Extremities: No lower extremity edema. No calf tenderness Neuro: Oriented X 3. No motor deficit. No sensory deficit.No cerebellar signs , cranial nerves II-XII intact Eyes: Eyes/upper lids images: 1. 2 cm long superficial laceration right eye medial aspect Medications Administered Discontinued Medications Generic Name Dose Route Start Last Admin Trade Name Freq PRN Reason Stop Dose Admin Lidocaine HCl 5 ml 11/23/22 03:29 11/23/22 03:50 Lidocaine Hcl 1 % Mpf 5 Ml Vial INFILTRATI 11/23/22 03:30 5 ml ONCE ONE Administration Procedures Laceration Laceration 1: Site: face (eyebrow) Side (If applicable): right Description: linear Depth: simple, single layer Local Anesthetic: lidocaine 1% Amount of anesthesia used (mL): 1 Skin layer closed with: nylon Size (cm): 6-0 Number of sutures: 6 Technique: simple, interrupted Medical Decision Making Medical Decision Making MDM Narrative: Patient after minor fall without any significant deeper injuries no loss of consciousness came with superficial laceration right eyebrow which was sutured Discharge Plan Discharge Clinical Impression: Laceration of eyebrow, right Patient Disposition: Home, Self-Care Instructions: Laceration (ED) Additional Instructions: Local care as advised Suture removal in 5-7 days Prescriptions: No Action naproxen 500 mg tablet 1 tab PO BID PRN (Reason: Pain) duloxetine 60 mg capsule,delayed release(DR/EC) 1 cap PO DAILY Trelegy Ellipta 200-62.5-25 mcg blister with device 1 puff inhalation DAILY atorvastatin 40 mg Tablet 40 mg PO BEDTIME Qty: 90 0RF aspirin 81 mg Tablet,Chewable 81 mg PO DAILY Qty: 90 0RF bupropion HCl 300 mg tablet extended release 24 hr 300 mg PO QAM albuterol sulfate 2.5 mg /3 mL (0.083 %) solution for nebulization 2.5 mg inhalation Q4-6H PRN (Reason: dyspnea) albuterol sulfate [Ventolin HFA] 90 mcg/actuation HFA aerosol inhaler 2 puff inhalation Q4H PRN (Reason: wheezing)
[2022-11-23] MEDS: Lidocaine HCl 1 % MPF 5 ML VIAL INFILTRATI (03:50)
== END 2022-11-23 04:46 | disposition home or self-care (01) ==
PROVIDERS: Emergency Provider Internal Medicine; PCP Registered Nurse
DX: S01.111A Laceration without foreign body of right eyelid and periocular area, initial encounter (principal); W22.09XA Striking against other stationary object, initial encounter; Y93.84 Activity, sleeping; Y92.013 Bedroom of single-family (private) house as the place of occurrence of the external cause; Y99.9 Unspecified external cause status
CPT/HCPCS: 12001; 99284

== ENCOUNTER 2023-06-02 22:25 | Emergency (ER) | payer MEDICARE, SELFPAY ==
--- NOTE | ~2023-06-02 | XR_ITS ---
EXAMINATION: XR CHEST CLINICAL INFORMATION: Pain. COMPARISON: Chest radiograph 07/17/2022. TECHNIQUE: 2 views of the chest were obtained. FINDINGS: Stable prominence of the cardiomediastinal silhouette. Unchanged mild diffuse interstitial thickening and left greater than right bibasilar streaky opacities. No new focal infiltrate. No pleural effusion or pneumothorax. No pulmonary edema. No acute osseous findings. XR/XR chest 2V IMPRESSION: 1. No acute cardiopulmonary findings. 2. Unchanged mild interstitial thickening and bibasilar streaky opacities, likely representing subsegmental atelectasis.
[2023-06-02 22:45] VITALS: BP 129/92; PULSE 123; RESP 16; TEMP 37; O2SAT 95; BMI 42.9
--- NOTE | 2023-06-02 23:34 | ECG_ITS ---
Test Reason : SOB Blood Pressure : / mmHG Vent. Rate : 104 BPM Atrial Rate : 104 BPM P-R Int : 164 ms QRS Dur : 090 ms QT Int : 348 ms P-R-T Axes : 048 -23 051 degrees QTc Int : 457 ms Sinus tachycardia RSR' or QR pattern in V1 suggests right ventricular conduction delay Inferior infarct (cited on or before 17-JUL-2022) Abnormal ECG When compared with ECG of 17-JUL-2022 22:22, No significant change was found Heart rate has increased Referred By: Caleb Pal Electronically Signed By:ELIZABETH CAROLINA MD
--- NOTE | 2023-06-02 23:40 | PC.NURSE ---
Pt ca&ox4, no signs of distress. Pt so at bedside. Pt reports 1/10 right sided abdm pain. Pts pulse 122 - Provider Jacobo aware. Provider with pt. Plan of care ongoing.
[2023-06-02 23:55] LABS: MANUAL DIFF FLAG NO
--- NOTE | 2023-06-02 23:55 | ED.GENADULT ---
HPI - General Adult General Chief complaint: Dyspnea Stated complaint: Shortness of breath, light headed Time Seen by Provider: 06/02/23 23:25 Source: patient, RN notes reviewed and old records reviewed Mode of arrival: ambulatory Limitations: no limitations History of Present Illness HPI narrative: 62-year-old female with past medical history significant for asthma, peripheral vascular disease presents for evaluation of shortness of breath. Patient reports that she has been feeling unwell since last Saturday, 5 days ago She does not believe that she ever had a fever but she has had increased weakness and worsening shortness of breath Today she reports that her shortness of breath was worsening and she feels that she could not catch her breath or take a deep breath She denies any chest pain She denies any cough. Patient reports she tried her nebulizers and Mucinex which usually helps her asthma exacerbations but without any improvement The patient reports that she called the on-call for her PCP yesterday and was given a prednisone taper which also has not helped her symptoms Denies any history of DVT or PE Denies any recent travel or long flights Related Data Home Medications Medication Instructions Recorded Confirmed albuterol sulfate 2.5 mg/3 mL 2.5 mg inhalation Q4-6H PRN dyspnea 05/19/22 07/17/22 (0.083 %) solution for nebulization albuterol sulfate 90 mcg/actuation 2 puff inhalation Q4H PRN wheezing 05/19/22 07/17/22 aerosol inhaler (Ventolin HFA) bupropion HCl 300 mg 24 hr tablet, 300 mg PO QAM 05/19/22 07/17/22 extended release duloxetine 60 mg capsule,delayed 1 cap PO DAILY 07/17/22 07/17/22 release fluticasone fur. 200 mcg-umeclid 1 puff inhalation DAILY 07/17/22 07/17/22 62.5 mcg-vilant 25 mcg inhalat.powder (Trelegy Ellipta) naproxen 500 mg tablet 1 tab PO BID PRN Pain 07/17/22 07/17/22 Previous Rx's Medication Instructions Recorded aspirin 81 mg chewable tablet 81 mg PO DAILY #90 tabs 07/19/22 atorvastatin 40 mg tablet 40 mg PO BEDTIME #90 tabs 07/19/22 azithromycin 250 mg tablet 250 mg PO DAILY 4 days #4 tabs 06/03/23 prednisone 10 mg tablets in a dose 10 mg PO DIRECTED #48 ea 06/03/23 pack Allergies Allergy/AdvReac Type Severity Reaction Status Date / Time adhesive [ADHESIVE] Allergy Unknown RASH Verified 07/17/22 19:43 Review of Systems Constitutional: Constitutional: Denies chills, Denies fever(s), Reports lethargy and Reports malaise Eyes: Eyes: Denies blurry vision ENT: Denies vertigo and Denies dizziness Cardiovascular: Cardiovascular: Denies chest pain and Denies dyspnea Respiratory: Respiratory: Denies cough and Denies dyspnea Neurologic: Denies vertigo and Denies dizziness [facility] Past Medical History Medical History Acute asthma exacerbation Cerebral microvascular disease H/O supraventricular tachycardia Imbalance Mood disorder Slurred speech Social History Social History Household Members: Significant Other Housing: House Do you presently have visiting nurse or other home services: No Alcohol intake: former Patient Tobacco Use Status: Never used Tobacco Smoked in Last 30 Days: No Use of substances other than those prescribed or required for medical reasons: No Advance Directives: Yes Advance Directives on File: Yes Advance Directives Date on File: 07/18/22 service: No Current occupational status: disabled Physical Exam ED Vital Signs: Vital Signs - 24 hr 06/02/23 22:45 Temperature 98.6 F Pulse Rate 123 H Respiratory Rate 16 Blood Pressure 129/92 H Pulse Oximetry 95 Oxygen Delivery Method Room Air BMI result Body Mass Index 42.9 Const General: healthy appearing, comfortable, no acute distress, alert and awake Nutritional Appearance: well nourished Orientation/consciousness: patient oriented x3 HENMT Head: Yes normocephalic and Yes atraumatic Eyes Eyelids: Yes eyelids normal Conjunctivae: conjunctivae normal Sclerae: sclerae normal Corneas: corneas normal Pupils: Equal, round and reactive pupils present EOM: EOMs intact bilaterally Neck Neck: Yes full ROM Resp Effort & Inspection: normal respiratory effort, able to speak in complete sentences, no audible wheezes and not labored Auscultation: clear to auscultation bilaterally GI Inspection: No distended Palpation (GI): Soft to palpation, not firm, nontender, no guarding and not rigid Skin General skin exam: no rashes or lesions noted and elasticity normal Neuro General: patient oriented x3 Cranial nerves: Yes Equal, round and reactive pupils present and Yes Bilaterally intact EOM present Cognition (Neuro): normal cognition Extrem Other: Moving all extremities well without any obvious deformities Course Reevaluation(s) Reevaluation #1: Patient's workup is largely unremarkable, chest x-ray is clear, EKG is sinus tachycardia without any evidence of ischemia. No evidence of heart failure. D-dimer negative which rules out PE. I discussed all this with the patient, her heart rate has improved without any intervention. Will discharge the patient with azithromycin and prednisone Time: 00:57 Medical Decision Making Medical Decision Making [facility] Narrative: 62-year-old female presents for evaluation of shortness of breath. Patient's oxygen saturations 95%, she is not wheezing exam, respiratory rate is 16. She is noted to be tachycardic to 123. Will get an EKG, chest x-ray, labs. I feel that asthma is less likely as the patient has no wheezing whatsoever. Also get a viral swab. She used a nebulizer treatment prior to arrival and is tachycardic to 123. This may be related to albuterol use or other pathology. Workup pending. Differential Diagnosis Differential Diagnoses: The differential diagnosis associated with the presentation includes Dyspnea Asthma exacerbation Bronchitis Pneumonia Viral syndrome PE Lab Data [facility] Lab Attestation statement: I reviewed the patient's lab results. Mild leukocytosis to 12.0. This may be related to infectious pathology or prednisone use. No significant anemia. Normal platelet count. 06/02/23 23:47 06/02/23 23:47 Labs: Lab Results 06/02/23 Range/Units 23:47 WBC 12.0 H (4.8-10.8) X10*3/uL RBC 4.97 (4.20-5.50) X10*6/uL Hgb 14.8 (12.0-16.0) g/dl Hct 44.7 (37.0-47.0) % MCV 89.9 (80.0-98.0) fL MCH 29.8 (27.0-33.0) pg MCHC 33.1 (31.0-35.0) g/dl RDW 13.2 (11.0-16.0) % Plt Count 231 (160-400) X10*3/uL MPV 9.2 L (9.4-12.3) fL Immature Gran % (Auto) 0.3 (0.0-0.4) % Neut % (Auto) 81.7 H (45-73) % Lymph % (Auto) 12.7 L (20-40) % [place] % (Auto) 5.1 (2-11) % Eos % (Auto) 0.0 (0-4) % Baso % (Auto) 0.2 (0-2) % Lymph # (Auto) 1.5 (1.2-4.9) X10*3/uL [place] # (Auto) 0.6 (0.1-1.2) X10*3/uL Eos # (Auto) 0.0 (0.0-0.4) X10*3/uL Baso # (Auto) 0.0 (0.0-0.2) X10*3/uL Abs Immat Gran (auto) 0.04 H (0.00-0.03) X10*3/uL Absolute Neuts (auto) 9.8 H (2.0-8.3) x10*3/uL Absolute Nucleated RBC 0.000 (0.0-0.012) X10*3/uL Nucleated RBC % (auto) 0.0 (0.0-0.2) /100WBC PT 12.4 (11.1-13.3) SEC INR 1.0 (0.9-1.1) APTT 32.7 (26.0-36.4) SEC D-Dimer High Sensitivty < 150 NG/ML Sodium 143 (135-145) mmol/L Potassium 4.2 (3.3-5.1) mmol/L Chloride 111 H (96-108) mmol/L Carbon Dioxide 22 (22-29) mmol/L Anion Gap 14 (12-20) BUN 16 (9-16) mg/dL Creatinine 0.83 (0.5-1.4) mg/dL Estim Creat Clear Calc 88.9 Estimated GFR > 60 Random Glucose 174 H (60-115) mg/dL Calcium 9.7 D (8.4-10.2) mg/dL Total Bilirubin 0.5 (0.0-1.0) mg/dL AST 14 (5-31) U/L ALT 17 (0-31) U/L Alkaline Phosphatase 112 (39-117) U/L Troponin I High Sens < 2.7 (<3.5-17.0) ng/L B-Natriuretic Peptide < 10 (<100) pg/mL Total Protein 7.3 (6.5-8.0) g/dL Albumin 4.2 (3.5-5.0) g/dL Lipase 11 (8-78) U/L Influenza Type A (PCR) NEGATIVE (Negative) Influenza Type B (PCR) NEGATIVE (Negative) RSV RNA Qual (PCR) NEGATIVE (Negative) SARS-CoV-2 RNA (RT-PCR) NEGATIVE (Negative) Discharge Plan Discharge Clinical Impression: Acute dyspnea Patient Disposition: Home, Self-Care Instructions: Dyspnea (ED) Additional Instructions: Take azithromycin and prednisone as directed. You are given your 1st doses in the emergency department Use your nebulizers as prescribed Follow-up with your primary doctor Prescriptions: New azithromycin 250 mg tablet 250 mg PO DAILY 4 Days Qty: 4 0RF Rx Instructions: start on day 2 of therapy prednisone 10 mg tablets,dose pack 10 mg PO DIRECTED Qty: 48 0RF Rx Instructions: see taper instructions No Action naproxen 500 mg tablet 1 tab PO BID PRN (Reason: Pain) duloxetine 60 mg capsule,delayed release(DR/EC) 1 cap PO DAILY Trelegy Ellipta 200-62.5-25 mcg blister with device 1 puff inhalation DAILY atorvastatin 40 mg Tablet 40 mg PO BEDTIME Qty: 90 0RF aspirin 81 mg Tablet,Chewable 81 mg PO DAILY Qty: 90 0RF bupropion HCl 300 mg tablet extended release 24 hr 300 mg PO QAM albuterol sulfate 2.5 mg /3 mL (0.083 %) solution for nebulization 2.5 mg inhalation Q4-6H PRN (Reason: dyspnea) albuterol sulfate [Ventolin HFA] 90 mcg/actuation HFA aerosol inhaler 2 puff inhalation Q4H PRN (Reason: wheezing)
[2023-06-02 23:56] LABS: Basophils Percent Auto 0.2 % (0-2); Hematocrit 44.7 % (37.0-47.0); Hemoglobin 14.8 g/dl (12.0-16.0); Imm Gran Abs Auto 0.04 X10*3/uL (0.00-0.03); Imm Gran Pct Auto 0.3 % (0.0-0.4); Lymphocytes Absolute Auto 1.5 X10*3/uL (1.2-4.9); Lymphocytes Percent Auto 12.7 % (20-40); Mean Corpuscular HGB Conc 33.1 g/dl (31.0-35.0); Mean Corpuscular Hemoglobin 29.8 pg (27.0-33.0); Mean Corpuscular Volume 89.9 fL (80.0-98.0); Mean Platelet Volume 9.2 fL (9.4-12.3); Monocytes Absolute Auto 0.6 X10*3/uL (0.1-1.2); Monocytes Percent Auto 5.1 % (2-11); Neutrophils Absolute Auto 9.8 x10*3/uL (2.0-8.3); Neutrophils Percent Auto 81.7 % (45-73); Platelet Count 231 X10*3/uL (160-400); Red Blood Count 4.97 X10*6/uL (4.20-5.50); Red Cell Distribution Width 13.2 % (11.0-16.0)
[2023-06-03 00:11] LABS: Alanine Aminotransferase 17 U/L (0-31); Albumin Level 4.2 g/dL (3.5-5.0); Alkaline Phosphatase 112 U/L (39-117); Anion Gap 14 (12-20); Aspartate Amino Transferase 14 U/L (5-31); Bilirubin Total 0.5 mg/dL (0.0-1.0); Blood Urea Nitrogen 16 mg/dL (9-16); Calcium 9.7 mg/dL (8.4-10.2); Carbon Dioxide 22 mmol/L (22-29); Chloride 111 mmol/L (96-108); Creatinine Clr Calc Pharmacy 88.9; Estimated Glomerular Filt Rate > 60; Glucose Random 174 mg/dL (60-115); Lipase 11 U/L (8-78); Potassium 4.2 mmol/L (3.3-5.1); Sodium 143 mmol/L (135-145); Total Protein 7.3 g/dL (6.5-8.0)
[2023-06-03 00:16] LABS: B Type Natriuretic Peptide < 10 pg/mL (<100); Troponin-I High Sensitivity < 2.7 ng/L (<3.5-17.0)
[2023-06-03 00:33] LABS: Influenza A PCR NEGATIVE (Negative); Influenza B PCR NEGATIVE (Negative); Resp Syncy Virus RNA Qual PCR NEGATIVE (Negative); SARS COV2 PCR INHOUSE NEGATIVE (Negative)
[2023-06-03 00:37] LABS: Prothrombin Time 12.4 SEC (11.1-13.3)
[2023-06-03 00:40] LABS: Partial Thromboplastin Time 32.7 SEC (26.0-36.4)
[2023-06-03 00:48] LABS: D Dimer High Sensitivity < 150 NG/ML
[2023-06-03 01:01] VITALS: BP 118/75; PULSE 94; RESP 14; TEMP 36.4; O2SAT 93
[2023-06-03] MEDS: predniSONE 20 MG TABLET 60 MG PO (01:14)
[2023-06-03] MEDS: Azithromycin 500 MG TABLET PO (01:14)
--- NOTE | 2023-06-03 01:19 | PC.NURSE ---
Pt ca&ox4, no signs of distress. Pts spouse remains at bedside. Pt medicated per mar. Plan of care ongoing.
== END 2023-06-03 01:34 | disposition home or self-care (01) ==
PROVIDERS: Physician Assistant; Emergency Provider Emergency Medicine; PCP Registered Nurse
DX: R06.02 Shortness of breath (principal); R42 Dizziness and giddiness; R07.89 Other chest pain; R00.0 Tachycardia, unspecified; Z20.822 Contact with and (suspected) exposure to COVID-19; Z20.828 Contact with and (suspected) exposure to other viral communicable diseases; Z79.899 Other long term (current) drug therapy
CPT/HCPCS: 0241U; 36415; 71046; 80053; 83690; 83880; 84484; 85025; 85379; 85610; 85730; 93005; 99283; 99285

== ENCOUNTER 2023-06-11 03:39 | Emergency (ER) | payer MEDICARE, SELFPAY ==
--- NOTE | ~2023-06-11 | CT_ITS ---
EXAMINATION: CT ABDOMEN AND PELVIS WITH CONTRAST CLINICAL INFORMATION: COMPARISON: None available. TECHNIQUE: Multidetector volumetric images were obtained from the superior aspect of the liver through the pubic symphysis following administration 85 mL of Omnipaque 350 intravenous contrast. Sagittal and coronal reformatted images were obtained on the technologist's workstation. Oral contrast: No This CT examination was performed using dose optimization techniques as appropriate, variously including the following: *Automated exposure control *Adjustment of mA and/or kV according to patient size (this includes techniques or standardized protocols for targeted exams where dose is matched to indication/reason for exam; i.e. extremities or head) *Use of iterative reconstruction technique DLP: 1019 mGy-cm FINDINGS: LUNG BASES: There is scarring at both lung bases. LIVER, GALLBLADDER, AND BILIARY TREE: The liver is normal in size, shape, and attenuation. No focal hepatic lesion or biliary ductal dilatation is present. There has been a prior cholecystectomy. PANCREAS: The pancreas is atrophic/fatty replaced. SPLEEN: Unremarkable. ADRENAL GLANDS: Unremarkable. KIDNEYS AND URETERS: The kidneys are normal in size, shape, and attenuation. No hydronephrosis, hydroureter, or calculi seen. No perinephric stranding. BLADDER: Unremarkable. GASTROINTESTINAL TRACT: There is retained stool. The appendix is visualized and is within normal limits. There is central mesenteric infiltration. ABDOMINAL WALL: Small umbilical and periumbilical hernias containing fat. LYMPH NODES: Normal. VASCULAR: There is atherosclerotic plaque of the abdominal aorta. PELVIC VISCERA: Unremarkable. OSSEOUS STRUCTURES: Unremarkable. CT/CT abdomen pelvis w IV con IMPRESSION: Pancreatic atrophy/fatty replacement. Retained stool throughout the colon. No evidence for appendicitis. 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 Fleischner guidelines were followed.
[2023-06-11 03:43] VITALS: BP 123/69; PULSE 87; RESP 20; TEMP 36.6; O2SAT 94; BMI 43.6
[2023-06-11 04:26] LABS: Basophils Percent Auto 0.2 % (0-2); Eosinophils Absolute Auto 0.2 X10*3/uL (0.0-0.4); Eosinophils Percent Auto 1.2 % (0-4); Hemoglobin 14.7 g/dl (12.0-16.0); Imm Gran Abs Auto 0.05 X10*3/uL (0.00-0.03); Imm Gran Pct Auto 0.4 % (0.0-0.4); Lymphocytes Absolute Auto 2.6 X10*3/uL (1.2-4.9); Lymphocytes Percent Auto 19.8 % (20-40); MANUAL DIFF FLAG NO; Mean Corpuscular HGB Conc 33.4 g/dl (31.0-35.0); Mean Corpuscular Hemoglobin 29.9 pg (27.0-33.0); Mean Corpuscular Volume 89.4 fL (80.0-98.0); Monocytes Absolute Auto 0.9 X10*3/uL (0.1-1.2); Monocytes Percent Auto 7.2 % (2-11); Neutrophils Absolute Auto 9.2 x10*3/uL (2.0-8.3); Neutrophils Percent Auto 71.2 % (45-73); Platelet Count 234 X10*3/uL (160-400); Red Blood Count 4.92 X10*6/uL (4.20-5.50); Red Cell Distribution Width 13.5 % (11.0-16.0); White Blood Count 12.9 X10*3/uL (4.8-10.8)
[2023-06-11 04:27] LABS: Appearance Urine Clear; Color Urine Dark Yellow; Glucose Urine UA 250 mg/dL (Negative); Leukocyte Esterase Urine Trace (Negative); Nitrite Urine Positive (Negative); PH 5.5 (5.0-9.0); Specific Gravity - Urine >= 1.030 (1.005-1.025); UMIC TRIGGER UACC YES; Urine Blood Negative (Negative); Urine Ketones Negative (Negative); Urine Protein Negative (Neg-Trace)
[2023-06-11 04:38] LABS: Bacteria Urine None Seen (None Seen); Calcium Oxalate Crystals Urine Present; RBC Urine 0-2 /HPF (0-2); UACC Culture Trigger YES; WBC Urine 0-5 /HPF (0-5)
[2023-06-11 04:41] LABS: Alanine Aminotransferase 25 U/L (0-31); Albumin Level 3.9 g/dL (3.5-5.0); Alkaline Phosphatase 124 U/L (39-117); Anion Gap 14 (12-20); Aspartate Amino Transferase 14 U/L (5-31); Bilirubin Total 0.6 mg/dL (0.0-1.0); Blood Urea Nitrogen 18 mg/dL (9-16); Calcium 9.5 mg/dL (8.4-10.2); Carbon Dioxide 25 mmol/L (22-29); Chloride 109 mmol/L (96-108); Creatinine Clr Calc Pharmacy 90.9; Estimated Glomerular Filt Rate > 60; Glucose Random 127 mg/dL (60-115); Lipase 19 U/L (8-78); Potassium 3.6 mmol/L (3.3-5.1); Sodium 144 mmol/L (135-145); Total Protein 6.7 g/dL (6.5-8.0)
[2023-06-11] MEDS: 0.9 % Sodium Chloride 1,000 ML 999 ML IV (04:54)
[2023-06-11] MEDS: iohexoL 350 MG/ML 100 ML INFUS..BTL 85 ML IV (04:54)
--- NOTE | 2023-06-11 05:23 | ED_ITS ---
HPI - Abdominal Pain General Chief Complaint: Abdominal Pain Stated Complaint: Abd pain Time Seen by Provider: 06/11/23 04:21 Source: patient Mode of arrival: ambulatory Limitations: no limitations History of Present Illness HPI narrative: 62 yo female with PMH of bladder sling, HLD, asthma here with c/o lower abdominal cramping x 2 days but no other associated symptoms no n/v/d no urinary symptoms did take azo just in case. She touched her abdomen tonight and it was very painful so came to be evaluated MD elicited complaint: abdominal pain Pertinent past history: none Onset (ago): day(s) (2) Pain Consistency: constant Location: RLQ Severity: moderate Quality: cramping Radiation: none Migration to: no migration Exacerbating factors: nothing Relieving factors: nothing Associated symptoms: denies other symptoms Related Data Home Medications Medication Instructions Recorded Confirmed albuterol sulfate 2.5 mg/3 mL 2.5 mg inhalation Q4-6H PRN dyspnea 05/19/22 07/17/22 (0.083 %) solution for nebulization albuterol sulfate 90 mcg/actuation 2 puff inhalation Q4H PRN wheezing 05/19/22 07/17/22 aerosol inhaler (Ventolin HFA) bupropion HCl 300 mg 24 hr tablet, 300 mg PO QAM 05/19/22 07/17/22 extended release duloxetine 60 mg capsule,delayed 1 cap PO DAILY 07/17/22 07/17/22 release fluticasone fur. 200 mcg-umeclid 1 puff inhalation DAILY 07/17/22 07/17/22 62.5 mcg-vilant 25 mcg inhalat.powder (Trelegy Ellipta) naproxen 500 mg tablet 1 tab PO BID PRN Pain 07/17/22 07/17/22 Previous Rx's Medication Instructions Recorded aspirin 81 mg chewable tablet 81 mg PO DAILY #90 tabs 07/19/22 atorvastatin 40 mg tablet 40 mg PO BEDTIME #90 tabs 07/19/22 azithromycin 250 mg tablet 250 mg PO DAILY 4 days #4 tabs 06/03/23 prednisone 10 mg tablets in a dose 10 mg PO DIRECTED #48 ea 06/03/23 pack cefuroxime axetil 250 mg tablet 250 mg PO BID 7 days #14 tabs 06/11/23 Allergies Allergy/AdvReac Type Severity Reaction Status Date / Time adhesive [ADHESIVE] Allergy Unknown RASH Verified 07/17/22 19:43 Review of Systems Review of Systems Constitutional : No Weight loss, No Fever, No Chills ENT/Mouth : No sore throat, No Rhinorrhea Eyes: No Swelling, No Redness Cardiovascular : No Chest Pain, No SOB, NoEdema Respiratory : No Cough, No Sputum, No Wheezing Gastrointestinal : no Nausea, no Vomiting, no Diarrhea, positive abdominal Pain, No Hematochezia, No Melena Genitourinary : No Dysuria, No Urinary Frequency, No Hematuria, No Urgency Musculoskeletal : No joint pain, No Myalgias, No Joint Swelling Skin : No Skin Lesions, No rash Neuro : No Weakness, No Numbness, No Dizziness, No Headache Psych : No Anxiety/Panic, No Depression Heme/Lymph: No Bruising, No Lymphadenopathy Endocrine : No Polyuria, No Polydipsia All other systems reviewed and are negative. [facility] Past Medical History Attestation statement: The following information was validated with the patient. Source: old records reviewed Medical History Cerebral microvascular disease Imbalance Slurred speech Mood disorder H/O supraventricular tachycardia Acute asthma exacerbation Social History Social History Household Members: Significant Other Housing: House Do you presently have visiting nurse or other home services: No Alcohol intake: former Patient Tobacco Use Status: Never used Tobacco Smoked in Last 30 Days: No Use of substances other than those prescribed or required for medical reasons: No Advance Directives: Yes Advance Directives on File: Yes Advance Directives Date on File: 07/18/22 service: No Current occupational status: disabled Physical Exam ED Vital Signs: Vital Signs - 24 hr 06/11/23 03:43 06/11/23 06:42 Temperature 97.9 F 97.9 F Pulse Rate 87 79 Respiratory Rate 20 16 Blood Pressure 123/69 116/75 Pulse Oximetry 94 93 Oxygen Delivery Method Room Air Room Air BMI result Body Mass Index 43.6 Appearance: Alert. Oriented X3. No acute distress. Eyes: Pupils equal, round and reactive to light. ENT: Pharynx normal. Neck: Normal inspection. Neck supple. CVS: Normal heart rate and rhythm. Pulses normal. Respiratory: No respiratory distress. Breath sounds normal. Abdomen: Soft and moderate RLQ pain no rebound Skin: Skin warm and dry. Normal skin color. Normal skin turgor. Extremities: No lower extremity edema. Neuro: Oriented X 3. No motor deficit. No sensory deficit. Medical Decision Making Medical Decision Making [facility] Narrative: 62 yo female with PMH of bladder sling, HLD, asthma here with 2 days of right lower abdomen no n/v/d or symptoms she is tender in RLQ at this time will obtain basic labs, UA and CT scan for appendicitis/renal colic Differential Diagnosis Differential Diagnoses: The differential diagnosis associated with the presentation includes renal colic, UTI, appendicitis Admission/Observation Consideration of admission/observation: Escalation of care including admission/observation considered not toxic, tolerating PO stable for outpatient management Lab Data [facility] Lab Attestation statement: I reviewed the patient's lab results. 06/11/23 04:21 06/11/23 04:21 Labs: Lab Results 06/11/23 06/11/23 Range/Units 04:20 04:21 WBC 12.9 H (4.8-10.8) X10*3/uL RBC 4.92 (4.20-5.50) X10*6/uL Hgb 14.7 (12.0-16.0) g/dl Hct 44.0 (37.0-47.0) % MCV 89.4 (80.0-98.0) fL MCH 29.9 (27.0-33.0) pg MCHC 33.4 (31.0-35.0) g/dl RDW 13.5 (11.0-16.0) % Plt Count 234 (160-400) X10*3/uL MPV 9.0 L (9.4-12.3) fL Immature Gran % (Auto) 0.4 (0.0-0.4) % Neut % (Auto) 71.2 (45-73) % Lymph % (Auto) 19.8 L (20-40) % [place] % (Auto) 7.2 (2-11) % Eos % (Auto) 1.2 (0-4) % Baso % (Auto) 0.2 (0-2) % Lymph # (Auto) 2.6 (1.2-4.9) X10*3/uL [place] # (Auto) 0.9 (0.1-1.2) X10*3/uL Eos # (Auto) 0.2 (0.0-0.4) X10*3/uL Baso # (Auto) 0.0 (0.0-0.2) X10*3/uL Abs Immat Gran (auto) 0.05 H (0.00-0.03) X10*3/uL Absolute Neuts (auto) 9.2 H (2.0-8.3) x10*3/uL Absolute Nucleated RBC 0.000 (0.0-0.012) X10*3/uL Nucleated RBC % (auto) 0.0 (0.0-0.2) /100WBC Sodium 144 (135-145) mmol/L Potassium 3.6 (3.3-5.1) mmol/L Chloride 109 H (96-108) mmol/L Carbon Dioxide 25 (22-29) mmol/L Anion Gap 14 (12-20) BUN 18 H (9-16) mg/dL Creatinine 0.82 (0.5-1.4) mg/dL Estim Creat Clear Calc 90.9 Estimated GFR > 60 Random Glucose 127 H (60-115) mg/dL Calcium 9.5 (8.4-10.2) mg/dL Total Bilirubin 0.6 (0.0-1.0) mg/dL AST 14 (5-31) U/L ALT 25 (0-31) U/L Alkaline Phosphatase 124 H (39-117) U/L Total Protein 6.7 (6.5-8.0) g/dL Albumin 3.9 (3.5-5.0) g/dL Lipase 19 (8-78) U/L Urine Color Dark Yellow Urine Appearance Clear Urine pH 5.5 (5.0-9.0) Ur Specific [place] >= 1.030 H (1.005-1.025) Urine Protein Negative (Neg-Trace) mg/dL Urine Glucose (UA) 250 H (Negative) mg/dL Urine Ketones Negative (Negative) mg/dL Urine Blood Negative (Negative) Urine Nitrite Positive H (Negative) Ur Leukocyte Esterase Trace H (Negative) Urine RBC 0-2 (0-2) /HPF Urine WBC 0-5 (0-5) /HPF Ur Squamous Epith Cells 3-5 (0-2) /HPF Calcium Oxalate Crystal Present Urine Bacteria None Seen (None Seen) Hyaline Casts 3-5 (0-2) /LPF Independent Interpretation I performed an independent interpretation of an: CT Scan (no appendicitis) Radiology Impression Discussion of test interpretation with radiology: I have reviewed the radiologist's reading. External Record Review External record reviewed: Inpatient record Prescription Management I considered prescription management with: Antibiotic Medications Administered Discontinued Medications Generic Name Dose Route Start Last Admin Trade Name Freq PRN Reason Stop Dose Admin Sodium Chloride 1,000 mls @ 999 mls/hr 06/11/23 04:30 06/11/23 05:49 Ns IV 06/11/23 05:30 Infused .Q1H1M SHERIF Infusion Iohexol 85 ml 06/11/23 04:53 06/11/23 04:54 Iohexol 350 Mg/Ml 100 Ml Infus..Btl IV 06/11/23 04:54 85 ml ONCE ONE Administration Discharge Plan Discharge Clinical Impression: Acute UTI Abdominal pain Qualifiers: Abdominal location: right lower quadrant Qualified Code(s): R10.31 - Right lower quadrant pain Patient Disposition: Home, Self-Care Instructions: Urinary Tract Infection in Women (ED), Abdominal Pain (ED) Additional Instructions: return for fevers, vomiting, severe back pain or any other concerns. take a probiotic while on antibiotics CT/CT abdomen pelvis w IV con IMPRESSION: Pancreatic atrophy/fatty replacement. Retained stool throughout the colon. No evidence for appendicitis. 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 On a cephalosporin?antibiotic, softer bowel movements are to be expected. Call your provider if you move your bowels more than 4 times a day, your bowel movements are almost all liquid, or you get a rash.?? Prescriptions: New cefuroxime axetil 250 mg tablet 250 mg PO BID 7 Days Qty: 14 0RF No Action naproxen 500 mg tablet 1 tab PO BID PRN (Reason: Pain) duloxetine 60 mg capsule,delayed release(DR/EC) 1 cap PO DAILY Trelegy Ellipta 200-62.5-25 mcg blister with device 1 puff inhalation DAILY atorvastatin 40 mg Tablet 40 mg PO BEDTIME Qty: 90 0RF aspirin 81 mg Tablet,Chewable 81 mg PO DAILY Qty: 90 0RF azithromycin 250 mg tablet 250 mg PO DAILY 4 Days Qty: 4 0RF Rx Instructions: start on day 2 of therapy prednisone 10 mg tablets,dose pack 10 mg PO DIRECTED Qty: 48 0RF Rx Instructions: see taper instructions bupropion HCl 300 mg tablet extended release 24 hr 300 mg PO QAM albuterol sulfate 2.5 mg /3 mL (0.083 %) solution for nebulization 2.5 mg inhalation Q4-6H PRN (Reason: dyspnea) albuterol sulfate [Ventolin HFA] 90 mcg/actuation HFA aerosol inhaler 2 puff inhalation Q4H PRN (Reason: wheezing)
[2023-06-11 06:42] VITALS: BP 116/75; PULSE 79; RESP 16; TEMP 36.6; O2SAT 93
[2023-06-11] MEDS: cefuroxime axetiL 250 MG TABLET PO (06:54)
== END 2023-06-11 06:57 | disposition home or self-care (01) ==
PROVIDERS: Emergency Provider Emergency Medicine; PCP Registered Nurse
DX: N39.0 Urinary tract infection, site not specified (principal); R10.31 Right lower quadrant pain; E66.9 Obesity, unspecified; Z68.41 Body mass index [BMI] 40.0-44.9, adult; Z79.899 Other long term (current) drug therapy
CPT/HCPCS: 36415; 74177; 80053; 81001; 83690; 85025; 87086; 96360; 99284; 99285; Q9967

== ENCOUNTER 2023-09-02 09:28 | Emergency (ER) | payer MEDICARE, SELFPAY ==
[2023-09-02 09:37] VITALS: BP 140/80; PULSE 90; RESP 18; TEMP 36.5; O2SAT 97; BMI 45.3
--- NOTE | 2023-09-02 09:43 | ED_ITS ---
HPI - Abdominal Pain General Chief Complaint: Abdominal Pain Stated Complaint: Abd cramping Time Seen by Provider: 09/02/23 09:35 Source: patient and family Mode of arrival: ambulatory Limitations: no limitations History of Present Illness HPI narrative: patient with a prior history of frequent abdominal pain and constipation. Last ED visit was in 06/[address] she had a CT that showed constipation and chronic changes. now with pain again after constipation MD elicited complaint: abdominal pain Pertinent past history: constipation Onset (ago): month(s) Pain Consistency: intermittent Location: diffuse Severity: mild Quality: cramping Related Data Home Medications Medication Instructions Recorded Confirmed albuterol sulfate 2.5 mg/3 mL 2.5 mg inhalation Q4-6H PRN dyspnea 05/19/22 07/17/22 (0.083 %) solution for nebulization albuterol sulfate 90 mcg/actuation 2 puff inhalation Q4H PRN wheezing 05/19/22 07/17/22 aerosol inhaler (Ventolin HFA) bupropion HCl 300 mg 24 hr tablet, 300 mg PO QAM 05/19/22 07/17/22 extended release duloxetine 60 mg capsule,delayed 1 cap PO DAILY 07/17/22 07/17/22 release fluticasone fur. 200 mcg-umeclid 1 puff inhalation DAILY 07/17/22 07/17/22 62.5 mcg-vilant 25 mcg inhalat.powder (Trelegy Ellipta) naproxen 500 mg tablet 1 tab PO BID PRN Pain 07/17/22 07/17/22 Previous Rx's Medication Instructions Recorded aspirin 81 mg chewable tablet 81 mg PO DAILY #90 tabs 07/19/22 atorvastatin 40 mg tablet 40 mg PO BEDTIME #90 tabs 07/19/22 azithromycin 250 mg tablet 250 mg PO DAILY 4 days #4 tabs 06/03/23 prednisone 10 mg tablets in a dose 10 mg PO DIRECTED #48 ea 06/03/23 pack cefuroxime axetil 250 mg tablet 250 mg PO BID 7 days #14 tabs 06/11/23 psyllium husk 3.4 gram/5.4 gram 1 tsp PO BID #660 grams 09/02/23 oral powder (Metamucil) Allergies Allergy/AdvReac Type Severity Reaction Status Date / Time adhesive [ADHESIVE] Allergy Unknown RASH Verified 12/06/22 19:43 Review of Systems Review of Systems Yes all other systems are reviewed and are negative Denies Sensory deficit (Neuro) [facility] Past Medical History Onset Date is defined in the Problem List Problems that require an onset date and time if occurred within 24 hrs of arrival to the ED Aortic Dissection and Rupture; Neurologic impairment; Cardiopulmonary Arrest; Endotracheal Intubation; Insertion or Replacement of Mechanical Circulatory Assist Device Medical History Cerebral microvascular disease Imbalance Slurred speech Mood disorder H/O supraventricular tachycardia Acute asthma exacerbation Social History Social History Household Members: Significant Other Housing: House Do you presently have visiting nurse or other home services: No Alcohol intake: former Patient Tobacco Use Status: Never used Tobacco Smoked in Last 30 Days: No Advance Directives: Yes Advance Directives on File: Yes Advance Directives Date on File: 07/18/22 Patient : No service: No Current occupational status: disabled Physical Exam ED Vital Signs: Vital Signs - 24 hr 09/02/23 09:37 09/02/23 10:00 09/02/23 11:07 Temperature 97.7 F Pulse Rate 90 73 Respiratory Rate 18 18 18 Blood Pressure 140/80 H 146/71 H Pulse Oximetry 97 97 Oxygen Delivery Method Room Air Room Air 09/02/23 12:00 Temperature Pulse Rate Respiratory Rate 18 Blood Pressure Pulse Oximetry Oxygen Delivery Method BMI result Body Mass Index 45.3 Const Other: Morbid obesity Orientation/consciousness: oriented to person and patient oriented x3 Limitations: no limitations HENMT Head: Yes normal to inspection Ears: external ears normal General nose exam: Normal external nose present Mouth: Normal oral and palatal mucosa present and oropharynx normal Throat: Yes posterior oropharynx normal Eyes General: appearance normal, both eyes and all related structures Neck Neck: Yes normal visual inspection Chest Chest palpation & inspection: normal inspection of the chest Resp Auscultation: clear to auscultation bilaterally Cardio Jugular venous distension: no JVD Rate: regular rate Rhythm: regular rhythm Heart sounds: S1 normal heart sound present and S2 normal heart sound present GI Other: obese nontender Palpation (GI): Soft to palpation, nontender and No hepatosplenomegaly present Auscultation: normal bowel sounds General: Yes no CVA tenderness Back/Spine/Pelvis Back: no CVA tenderness Skin General skin exam: no rashes or lesions noted Neuro General: oriented to person and patient oriented x3 Cranial nerves: Yes CN's II-XII intact bilaterally Motor exam (neuro): 5/5 motor strength present throughout Sensory Exam: No Sensory deficit (Neuro) Extrem General: Yes normal to inspection Psych Appearance: grossly normal Course Reevaluation(s) Reevaluation #1: labs and urine negative for infection, patient consulted on her diet for constipation and regimen started Time: 13:12 Medical Decision Making Differential Diagnosis Differential Diagnoses: The differential diagnosis associated with the presentation includes (diverticulitis, constipation, appendicitis all considered) Admission/Observation Consideration of admission/observation: Escalation of care including admission/observation considered (upon arrival patient was considered for admission) Lab Data 09/02/23 09:53 09/02/23 09:53 Labs: Lab Results 09/02/23 09/02/23 Range/Units 09:53 11:04 WBC 8.0 (4.8-10.8) X10*3/uL RBC 4.94 (4.20-5.50) X10*6/uL Hgb 14.8 (12.0-16.0) g/dl Hct 44.1 (37.0-47.0) % MCV 89.3 (80.0-98.0) fL MCH 30.0 (27.0-33.0) pg MCHC 33.6 (31.0-35.0) g/dl RDW 13.4 (11.0-16.0) % Plt Count 209 (160-400) X10*3/uL MPV 9.1 L (9.4-12.3) fL Immature Gran % (Auto) 0.3 (0.0-0.4) % Neut % (Auto) 69.1 (45-73) % Lymph % (Auto) 22.2 (20-40) % [place] % (Auto) 6.3 (2-11) % Eos % (Auto) 1.5 (0-4) % Baso % (Auto) 0.6 (0-2) % Lymph # (Auto) 1.8 (1.2-4.9) X10*3/uL [place] # (Auto) 0.5 (0.1-1.2) X10*3/uL Eos # (Auto) 0.1 (0.0-0.4) X10*3/uL Baso # (Auto) 0.1 (0.0-0.2) X10*3/uL Abs Immat Gran (auto) 0.02 (0.00-0.03) X10*3/uL Absolute Neuts (auto) 5.5 (2.0-8.3) x10*3/uL Absolute Nucleated RBC 0.000 (0.0-0.012) X10*3/uL Nucleated RBC % (auto) 0.0 (0.0-0.2) /100WBC Sodium 142 (135-145) mmol/L Potassium 4.3 (3.3-5.1) mmol/L Chloride 107 (96-108) mmol/L Carbon Dioxide 26 (22-29) mmol/L Anion Gap 13 (12-20) BUN 14 (9-16) mg/dL Creatinine 0.79 (0.5-1.4) mg/dL Estim Creat Clear Calc 95.3 Estimated GFR > 60 Random Glucose 120 H (60-115) mg/dL Calcium 9.2 (8.4-10.2) mg/dL Total Bilirubin 0.7 (0.0-1.0) mg/dL AST 22 (5-31) U/L ALT 20 (0-31) U/L Alkaline Phosphatase 96 (39-117) U/L Total Protein 7.2 (6.5-8.0) g/dL Albumin 3.8 (3.5-5.0) g/dL Lipase 18 (8-78) U/L Urine Color Yellow Urine Appearance Clear Urine pH 6.5 (5.0-9.0) Ur Specific [place] 1.010 (1.005-1.025) Urine Protein Negative (Neg-Trace) mg/dL Urine Glucose (UA) Negative (Negative) mg/dL Urine Ketones Negative (Negative) mg/dL Urine Blood Negative (Negative) Urine Nitrite Negative (Negative) Ur Leukocyte Esterase Negative (Negative) Independent Historian Clinical information obtained from an independent historian. History obtained from or confirmed by: Friend External Record Review External record reviewed: Outpatient record Tests considered The following testing was considered but not selected: CT abdomen considered but patient with recent CT, non focal exam, no fever, no leukocytosis Prescription Management I considered prescription management with: Antibiotic (no evidence of UTI or abdominal infection) Chronic Conditions Patient?s care impacted by: Other (obesity) Medications Administered Generic Name Dose Route Start Last Admin Trade Name Freq PRN Reason Stop Dose Admin Sodium Chloride 1,000 mls @ 200 mls/hr 09/02/23 09:45 09/02/23 09:53 Ns IVCONT 09/02/23 14:44 200 mls/hr .Q5H SHERIF Administration Discharge Plan Discharge Clinical Impression: Abdominal pain, Constipation Patient Disposition: Home, Self-Care Instructions: Constipation (ED), Abdominal Pain (ED) Prescriptions: New Metamucil 3.4 gram/5.4 gram powder 1 tsp PO BID Qty: 660 0RF Rx Instructions: mix into at least 4 oz water or juice before administering No Action naproxen 500 mg tablet 1 tab PO BID PRN (Reason: Pain) duloxetine 60 mg capsule,delayed release(DR/EC) 1 cap PO DAILY Trelegy Ellipta 200-62.5-25 mcg blister with device 1 puff inhalation DAILY atorvastatin 40 mg Tablet 40 mg PO BEDTIME Qty: 90 0RF aspirin 81 mg Tablet,Chewable 81 mg PO DAILY Qty: 90 0RF azithromycin 250 mg tablet 250 mg PO DAILY 4 Days Qty: 4 0RF Rx Instructions: start on day 2 of therapy prednisone 10 mg tablets,dose pack 10 mg PO DIRECTED Qty: 48 0RF Rx Instructions: see taper instructions cefuroxime axetil 250 mg tablet 250 mg PO BID 7 Days Qty: 14 0RF bupropion HCl 300 mg tablet extended release 24 hr 300 mg PO QAM albuterol sulfate 2.5 mg /3 mL (0.083 %) solution for nebulization 2.5 mg inhalation Q4-6H PRN (Reason: dyspnea) albuterol sulfate [Ventolin HFA] 90 mcg/actuation HFA aerosol inhaler 2 puff inhalation Q4H PRN (Reason: wheezing) Referrals: Stacie Huertas DNP [Primary Care Provider] - 3 days
[2023-09-02] MEDS: 0.9 % Sodium Chloride 1,000 ML 200 ML IVCONT (09:53)
[2023-09-02 09:59] LABS: MANUAL DIFF FLAG NO
[2023-09-02 10:00] VITALS: RESP 18
[2023-09-02 10:00] LABS: Basophils Absolute Auto 0.1 X10*3/uL (0.0-0.2); Basophils Percent Auto 0.6 % (0-2); Eosinophils Absolute Auto 0.1 X10*3/uL (0.0-0.4); Eosinophils Percent Auto 1.5 % (0-4); Hematocrit 44.1 % (37.0-47.0); Hemoglobin 14.8 g/dl (12.0-16.0); Imm Gran Abs Auto 0.02 X10*3/uL (0.00-0.03); Imm Gran Pct Auto 0.3 % (0.0-0.4); Lymphocytes Absolute Auto 1.8 X10*3/uL (1.2-4.9); Lymphocytes Percent Auto 22.2 % (20-40); Mean Corpuscular HGB Conc 33.6 g/dl (31.0-35.0); Mean Corpuscular Volume 89.3 fL (80.0-98.0); Mean Platelet Volume 9.1 fL (9.4-12.3); Monocytes Absolute Auto 0.5 X10*3/uL (0.1-1.2); Monocytes Percent Auto 6.3 % (2-11); Neutrophils Absolute Auto 5.5 x10*3/uL (2.0-8.3); Neutrophils Percent Auto 69.1 % (45-73); Platelet Count 209 X10*3/uL (160-400); Red Blood Count 4.94 X10*6/uL (4.20-5.50); Red Cell Distribution Width 13.4 % (11.0-16.0)
--- NOTE | 2023-09-02 10:12 | PC.NURSE ---
Pt reports lower abd cramping since this am, has been having this problem on and off for a few months. skin pwd. MAEI, 20 left ac with fluids running, labs drawn and sent down. call c[facility]shaw within reach.
[2023-09-02 10:32] LABS: Alanine Aminotransferase 20 U/L (0-31); Albumin Level 3.8 g/dL (3.5-5.0); Alkaline Phosphatase 96 U/L (39-117); Anion Gap 13 (12-20); Aspartate Amino Transferase 22 U/L (5-31); Bilirubin Total 0.7 mg/dL (0.0-1.0); Blood Urea Nitrogen 14 mg/dL (9-16); Calcium 9.2 mg/dL (8.4-10.2); Carbon Dioxide 26 mmol/L (22-29); Chloride 107 mmol/L (96-108); Creatinine Clr Calc Pharmacy 95.3; Estimated Glomerular Filt Rate > 60; Glucose Random 120 mg/dL (60-115); Lipase 18 U/L (8-78); Potassium 4.3 mmol/L (3.3-5.1); Sodium 142 mmol/L (135-145); Total Protein 7.2 g/dL (6.5-8.0)
[2023-09-02 11:07] VITALS: BP 146/71; PULSE 73; RESP 18; O2SAT 97
[2023-09-02 11:13] LABS: Appearance Urine Clear; Color Urine Yellow; Glucose Urine UA Negative (Negative); Leukocyte Esterase Urine Negative (Negative); Nitrite Urine Negative (Negative); PH 6.5 (5.0-9.0); Urine Blood Negative (Negative); Urine Ketones Negative (Negative); Urine Protein Negative (Neg-Trace)
[2023-09-02 12:00] VITALS: RESP 18
== END 2023-09-02 13:32 | disposition home or self-care (01) ==
PROVIDERS: Emergency Provider Emergency Medicine; PCP Registered Nurse
DX: R10.9 Unspecified abdominal pain (principal); K59.00 Constipation, unspecified
CPT/HCPCS: 36415; 80053; 81003; 83690; 85025; 96360; 96361; 99284

== ENCOUNTER → 2024-01-07 15:42 | Outpatient (RCR) | payer MEDICARE, SELFPAY | END | disposition home or self-care (01) | LOC: HO.OT 05-15 08:19 | PROVIDERS: PCP Registered Nurse; Visit Provider Registered Nurse | DX: M25.531 Pain in right wrist (principal); M25.532 Pain in left wrist | CPT/HCPCS: 97110; 97166 ==

== ENCOUNTER 2024-04-16 10:00 | Outpatient (RCR) | payer MEDICARE, SELFPAY | END 2024-05-04 14:56 | disposition home or self-care (01) | LOC: HO.PT 10:00 | PROVIDERS: PCP Registered Nurse; Visit Provider Registered Nurse | DX: M25.50 Pain in unspecified joint (principal) | CPT/HCPCS: 97014; 97110; 97112; 97140; 97162; 97530 ==